=== PATIENT | female | born 1935 | race Caucasian/White ===

== ENCOUNTER 2018-12-31 06:28 | Observation (INO) | payer OTHER ==
[~2018-12-31] VITALS: Ht 154.9 cm; Wt 85.5 kg
[~2018-12-31 06:28] MED LIST: AMLO2.5T4 PO; FAMO20TA8 PO; FLUT1DIS3 IH; GLYB-226 PO; HYDR-2132 PO; LEVO100T12 PO; MONT10TA24 PO; RAMI10CA69 PO; RANI300T4 PO; SIMV40TA5 PO
[2018-12-31 07:00] LABS: BASOPHILS % (AUTO) 1.1 % (0.0-5.0); EOSINOPHILS % (AUTO) 2.4 % (0.0-8.0); HEMATOCRIT 36.2 % (36-48); LYMPHOCYTES % (AUTO) 28.6 % (21.0-51.0); MEAN CORPUSCULAR HEMOGLOBIN 30.5 pg (27.0-33.0); MEAN CORPUSCULAR VOLUME 92.6 fL (79-99); MONOCYTES % (AUTO) 6.7 % (3.0-13.0); NEUTROPHILS % (AUTO) 61.2 % (40.0-77.0); PLATELET COUNT (AUTO) 227 K/uL (130-400); RED BLOOD CELL COUNT(AUTO) 3.91 MIL/uL (4.00-5.50); RED CELL DISTRIBUTION WIDTH 13.8 % (11.0-15.5); WHITE BLOOD COUNT (AUTO) 5.9 K/uL (4.8-10.8)
[2018-12-31 07:09] LABS: CREATININE 0.7 mg/dL (0.5-1.5); POTASSIUM 3.5 mmol/L (3.5-5.1)
[2018-12-31 07:24] LABS: ALBUMIN 3.4 g/dL (3.5-5.0); BILIRUBIN,TOTAL 0.8 mg/dL (0.2-1.0); TOTAL PROTEIN, SERUM 6.9 g/dL (6.0-8.3)
[2018-12-31] MEDS ORDERED: DILTIAZEM HCL 5 MG/ML 10 ML VIAL IV ONE (07:31)
[2018-12-31] MEDS ORDERED: INSULIN HUMULIN R 100 UNIT/ML 3ML ONE (07:58)
[2018-12-31] MEDS ORDERED: DILTIAZEM 125MG+100 ML NS 125 ML IV SCH (08:00)
[2018-12-31] MEDS ORDERED: SODIUM CHLORIDE 0.9% 1000ML 1,000 ML IV ONE (08:49)
[2018-12-31] MEDS ORDERED: METOPROLOL TARTRATE 25 MG TAB ONE (08:49)
[2018-12-31] MEDS ORDERED: GLIP1TAB6 PO (08:57)
[2018-12-31] MEDS ORDERED: TRAM50TA4 PO (08:57)
[2018-12-31] MEDS ORDERED: CALC1TAB2 PO (08:57)
[2018-12-31] MEDS ORDERED: MONT10TA24 PO (08:57)
[2018-12-31] MEDS ORDERED: ALBU18HF7 IH (08:57)
[2018-12-31] MEDS ORDERED: FLUT1DIS3 IH (08:57)
[2018-12-31] MEDS ORDERED: CHOL200016 PO (08:57)
[2018-12-31] MEDS ORDERED: FAMO20TA8 PO (08:58)
[2018-12-31] MEDS ORDERED: LEVO100T12 PO (08:58)
[2018-12-31] MEDS ORDERED: SIMV40TA5 PO (08:58)
[2018-12-31] MEDS ORDERED: RAMI10CA69 PO (08:58)
[2018-12-31] MEDS ORDERED: AMLO2.5T4 PO (08:58)
[2018-12-31] MEDS ORDERED: METOPROLOL TARTRATE 50 MG TAB PO SCH (09:00)
[2018-12-31] MEDS ORDERED: SODIUM CHLORIDE 0.9% 1000ML 1,000 ML IV SCH (09:15)
[2018-12-31] MEDS: FUROSEMIDE 10 MG/ML 4ML VIAL IV SCH ×2 (09:45→21:09)
[2018-12-31] MEDS ORDERED: DiphenhydrAMINE HCL 50 MG/ML VIAL IV PRN (09:45)
[2018-12-31] MEDS ORDERED: LACTULOSE 20 GM/30 ML UDCUP PO PRN (09:45)
[2018-12-31] MEDS ORDERED: ONDANSETRON HCL 4 MG/2 ML VIAL IV PRN (09:45)
[2018-12-31] MEDS ORDERED: DIPHENHYDRAMINE HCL 25 MG CAPSULE PO PRN (09:45)
[2018-12-31] MEDS ORDERED: ALBUTEROL SULFATE 0.083% 2.5 MG/3 ML INH IH PRN ×2 (09:45)
[2018-12-31] MEDS ORDERED: ACETAMINOPHEN 325 MG TAB PO PRN ×2 (09:45)
[2018-12-31] MEDS ORDERED: MAG HYDROX/AL HYDROX/SIMETH ES 30 ML SUSP UDCUP PO PRN (09:45)
[2018-12-31] MEDS: POTASSIUM CHLORIDE 20 MEQ ERTAB PO SCH ×2 (09:45→21:10)
[2018-12-31] MEDS ORDERED: MONTELUKAST SODIUM 10 MG TAB PO PRN (09:45)
[2018-12-31] MEDS: PANTOPRAZOLE SODIUM 40 MG TABLET.DR PO SCH (09:56)
[2018-12-31] MEDS ORDERED: GLUCAGON 1MG KIT 1 MG ML IM PRN ×2 (10:00→20:15)
[2018-12-31] MEDS ORDERED: POTASSIUM CHLORIDE 20 MEQ ERTAB PO PRN (10:00)
[2018-12-31] MEDS ORDERED: DEXTROSE 50%-WATER 50 ML DISP.SYRIN IV PRN ×2 (10:00→20:15)
[2018-12-31] MEDS ORDERED: LIDOCAINE HCL-MPF 1% 2ML VIAL IJ PRN (10:00)
[2018-12-31] MEDS ORDERED: POTASSIUM CHLORIDE 10% ELIXIR 20 MEQ/15 ML UDCUP PO PRN (10:00)
[2018-12-31] MEDS ORDERED: POTASSIUM CHLORIDE 20MEQ/100ML 100 ML IV PRN (10:00)
[2018-12-31] MEDS ORDERED: ENOXAPARIN SODIUM 30 MG/0.3 ML SQ ONE (10:30)
[2018-12-31] MEDS ORDERED: POTASSIUM CHLORIDE 20 MEQ ERTAB PO ONE ×2 (10:30→12:20)
[2018-12-31] MEDS ORDERED: FUROSEMIDE 10 MG/ML 4ML VIAL ONE (10:30)
[2018-12-31] MEDS ORDERED: PANTOPRAZOLE SODIUM 40 MG TABLET.DR PO ONE (10:31)
[2018-12-31] MEDS ORDERED: IPRATROPIUM/ALBUTEROL SULFATE 3 ML SOLUTION IH ONE (10:37)
[2018-12-31] MEDS: IPRATROPIUM/ALBUTEROL SULFATE 3 ML SOLUTION IH SCH ×3 (10:39→23:40)
[2018-12-31] MEDS ORDERED: ONDANSETRON HCL 4 MG/2 ML VIAL ONE (11:13)
--- NOTE | 2018-12-31 11:39 | NUR ---
DCP: HOME Sw met with pt, pt's live in [facility] [phone]. Pt reports she is very active and independent or all ADLS. No DME or in home care services. PCP is Dr Chairez and uses [facility]. Pt denies dc needs, plan is home with . CM to follow and assist as needed Addendum: 12/31/18 at 1142 by SAVANNA BUENO Amended: Links added.
[2018-12-31 13:00] VITALS: BP 105/63
[2018-12-31] MEDS ORDERED: FUROSEMIDE 10 MG/ML 4ML VIAL IV SCH (15:00)
[2018-12-31] MEDS: TRAMADOL HCL 50 MG TABLET PO PRN ×2 (15:26→21:17)
[2018-12-31 16:00] VITALS: BP 102/55
[2018-12-31] MEDS: GLIPIZIDE METFORMIN PO SCH (16:35)
[2018-12-31] MEDS: DILTIAZEM HCL 180 MG CAP.SR.24H PO SCH (16:36)
--- NOTE | 2018-12-31 17:30 | NUR ---
DR. CHAIREZ Received call from Dr. Chairez. Updated her on patient's condition. Verified that lasix dose was given at 1730. Updated her that patient's rhythm is normal sinus rhythm and that patient is in no distress and in good spirits.
[2018-12-31 19:47] VITALS: BP 113/56
[2018-12-31] MEDS ORDERED: SIMVASTATIN 20 MG TABLET PO SCH (21:00)
[2018-12-31] MEDS: INSULIN HUMULIN R 100 UNIT/ML 3ML SQ SCH (21:19)
[2019-01-01 00:22] VITALS: BP 135/75
[2019-01-01 03:37] VITALS: BP 138/75
[2019-01-01 04:48] LABS: HEMATOCRIT 37.7 % (36-48); MEAN CORPUSCULAR HGB CONC 33.3 g/dL (32.0-36.0); MEAN CORPUSCULAR VOLUME 93.3 fL (79-99); PLATELET COUNT (AUTO) 259 K/uL (130-400); RED BLOOD CELL COUNT(AUTO) 4.04 MIL/uL (4.00-5.50); RED CELL DISTRIBUTION WIDTH 13.7 % (11.0-15.5); WHITE BLOOD COUNT (AUTO) 7.7 K/uL (4.8-10.8)
[2019-01-01 04:57] LABS: CREATININE 0.9 mg/dL (0.5-1.5); POTASSIUM 4.8 mmol/L (3.5-5.1)
[2019-01-01] MEDS: IPRATROPIUM/ALBUTEROL SULFATE 3 ML SOLUTION IH SCH ×2 (05:11→11:05)
[2019-01-01] MEDS ORDERED: LEVOTHYROXINE 100 MCG TABLET PO SCH (06:30)
[2019-01-01] MEDS: INSULIN HUMULIN R 100 UNIT/ML 3ML SQ SCH ×2 (06:50→11:30)
[2019-01-01] MEDS: PANTOPRAZOLE SODIUM 40 MG TABLET.DR PO SCH (06:50)
[2019-01-01 07:30] VITALS: BP 114/60
[2019-01-01] MEDS: GLIPIZIDE METFORMIN PO SCH ×2 (08:00→12:00)
[2019-01-01] MEDS ORDERED: LOSARTAN 50 MG TABLET PO SCH (09:00)
[2019-01-01] MEDS ORDERED: ENOXAPARIN SODIUM 30 MG/0.3 ML SQ SCH (09:00)
[2019-01-01] MEDS: FUROSEMIDE 10 MG/ML 4ML VIAL IV SCH (09:06)
[2019-01-01] MEDS: DILTIAZEM HCL 180 MG CAP.SR.24H PO SCH (09:07)
[2019-01-01] MEDS: POTASSIUM CHLORIDE 20 MEQ ERTAB PO SCH (09:09)
[2019-01-01 11:00] VITALS: BP 124/62
[2019-01-01] MEDS ORDERED: LOSA25TA41 PO (13:09)
[2019-01-01] MEDS ORDERED: DILT180C11 PO (13:10)
--- NOTE | 2019-01-01 15:54 | NUR ---
2D ECHO Paged Dr. Chairez to give her preliminary results from [facility] for severe aortic stenosis; moderate to severe mitral regurgitation and a 30% EF. Pending for patient to call back; patient has been updated.
[2019-01-01 16:00] VITALS: BP 100/64
--- NOTE | 2019-01-01 16:06 | NUR ---
DR. CHAIREZ Paged Dr. Chairez again to let her know of 2D ECHO information. Pending for her to call back.
== END 2019-01-01 17:37 | disposition home or self-care (01) ==
LOC: EDH 06:28 → EDHIP 08:35 → 3AH 12:12
PROVIDERS: ADMIT Internal Medicine; ATTEND Internal Medicine
DX: J44.9 Chronic obstructive pulmonary disease, unspecified (principal); I13.10 Hypertensive heart and chronic kidney disease without heart failure, with stage 1 through stage 4 chronic kidney disease, or unspecified chronic kidney disease; E11.22 Type 2 diabetes mellitus with diabetic chronic kidney disease; E11.21 Type 2 diabetes mellitus with diabetic nephropathy; N18.2 Chronic kidney disease, stage 2 (mild); E11.43 Type 2 diabetes mellitus with diabetic autonomic (poly)neuropathy; E11.49 Type 2 diabetes mellitus with other diabetic neurological complication; E11.51 Type 2 diabetes mellitus with diabetic peripheral angiopathy without gangrene; E11.618 Type 2 diabetes mellitus with other diabetic arthropathy; E66.01 Morbid (severe) obesity due to excess calories; E03.9 Hypothyroidism, unspecified; I35.0 Nonrheumatic aortic (valve) stenosis; I48.91 Unspecified atrial fibrillation; J30.9 Allergic rhinitis, unspecified; K21.9 Gastro-esophageal reflux disease without esophagitis; K31.84 Gastroparesis; M19.012 Primary osteoarthritis, left shoulder; E78.1 Pure hyperglyceridemia; M75.91 Shoulder lesion, unspecified, right shoulder; E78.2 Mixed hyperlipidemia; H40.119 Primary open-angle glaucoma, unspecified eye; I49.3 Ventricular premature depolarization; I45.2 Bifascicular block; Z79.51 Long term (current) use of inhaled steroids; Z79.890 Hormone replacement therapy; Z86.69 Personal history of other diseases of the nervous system and sense organs; Z79.84 Long term (current) use of oral hypoglycemic drugs; Z79.899 Other long term (current) drug therapy; Z88.6 Allergy status to analgesic agent; Z68.39 Body mass index [BMI] 39.0-39.9, adult
CPT/HCPCS: 36415 ×2; 71045; 80048; 80053; 82550; 82948 ×5; 83880; 84443; 84484; 85025; 85027; 93005 ×2; 93306; 94640 ×5; 94664; 96372 ×2; 96374; 96376 ×2; 99284; G0378 ×30; J1650 ×2; J1815 ×2; J1940 ×4; J2405; J3490 ×2; J7030

== ENCOUNTER 2019-01-05 00:53 | Inpatient (IN) | payer OTHER ==
[~2019-01-05] VITALS: Ht 154.9 cm; Wt 79.0 kg
[~2019-01-05 00:53] MED LIST changes: +ALBU18HF7 IH; -AMLO2.5T4 PO; +CALC1TAB2 PO; +CHOL200016 PO; +DILT180C11 PO; +GLIP1TAB6 PO; -GLYB-226 PO; -HYDR-2132 PO; +LOSA25TA41 PO; -RAMI10CA69 PO; -RANI300T4 PO; +SIMV-46 PO; -SIMV40TA5 PO; +TRAM50TA4 PO
[2019-01-05] MEDS ORDERED: DILTIAZEM HCL 5 MG/ML 10 ML VIAL IV ONE (01:11)
[2019-01-05 01:21] LABS: EOSINOPHILS % (AUTO) 1.9 % (0.0-8.0); HEMATOCRIT 39.2 % (36-48); LYMPHOCYTES % (AUTO) 29.2 % (21.0-51.0); MEAN CORPUSCULAR HEMOGLOBIN 30.8 pg (27.0-33.0); MEAN CORPUSCULAR HGB CONC 33.1 g/dL (32.0-36.0); MEAN CORPUSCULAR VOLUME 93.1 fL (79-99); MONOCYTES % (AUTO) 6.9 % (3.0-13.0); PLATELET COUNT (AUTO) 259 K/uL (130-400); RED BLOOD CELL COUNT(AUTO) 4.21 MIL/uL (4.00-5.50); RED CELL DISTRIBUTION WIDTH 13.7 % (11.0-15.5); WHITE BLOOD COUNT (AUTO) 9.6 K/uL (4.8-10.8)
[2019-01-05] MEDS ORDERED: DILTIAZEM HCL 125 MG/25 ML VIAL IV ONE ×3 (01:24→15:00)
[2019-01-05] MEDS ORDERED: SODIUM CHLORIDE 0.9% 100 ML IV ONE ×2 (01:25→15:01)
[2019-01-05] MEDS ORDERED: IPRATROPIUM/ALBUTEROL SULFATE 3 ML SOLUTION IH ONE ×3 (01:26→12:47)
[2019-01-05 01:33] LABS: INR 0.97 (0.85-1.15); PARTIAL THROMBOPLASTIN TIME 25.5 SEC (26.3-35.5); PROTHROMBIN TIME 10.2 SEC (9.6-11.6)
[2019-01-05 01:36] LABS: B-TYPE NATRIURETIC PEPTIDE 1000 pg/mL (0-100)
[2019-01-05 02:59] LABS: POTASSIUM 4.2 mmol/L (3.5-5.1)
[2019-01-05 03:04] LABS: ALBUMIN 3.7 g/dL (3.5-5.0); BILIRUBIN,TOTAL 0.5 mg/dL (0.2-1.0); TOTAL PROTEIN, SERUM 7.4 g/dL (6.0-8.3)
[2019-01-05] MEDS ORDERED: FUROSEMIDE 10 MG/ML 4ML VIAL ONE (04:17)
[2019-01-05 04:35] LABS: APPEARANCE,URINE Clear (CLEAR); BILIRUBIN,URINE Negative (NEGATIVE); COLOR,URINE Yellow (YELLOW); GLUCOSE, URINE (UA) 250 mg/dL (NEGATIVE); KETONES,URINE Trace mg/dL (NEGATIVE); LEUKOCYTE ESTERASE ,URINE Trace (NEGATIVE); NITRATE,URINE Negative (NEGATIVE); OCCULT BLOOD,URINE Negative (NEGATIVE); PROTEIN,URINE Negative (NEGATIVE)
[2019-01-05 04:40] LABS: BACTERIA,URINE None Seen /HPF (None Seen)
[2019-01-05] MEDS ORDERED: FUROSEMIDE 10 MG/ML 4ML VIAL IVP SCH (06:00)
[2019-01-05] MEDS ORDERED: DEXTROSE 50%-WATER 50 ML DISP.SYRIN IV PRN ×2 (06:00→07:30)
[2019-01-05] MEDS ORDERED: GLUCAGON 1MG KIT 1 MG ML IM PRN ×2 (06:00→07:30)
[2019-01-05] MEDS ORDERED: ACETAMINOPHEN 325 MG TAB PO PRN ×3 (06:00→07:00)
[2019-01-05] MEDS ORDERED: INSULIN R NPO SSI SQ SCH (06:00)
[2019-01-05] MEDS ORDERED: ALBUTEROL SULFATE 0.083% 2.5 MG/3 ML INH IH PRN (06:00)
[2019-01-05] MEDS ORDERED: NITROGLYCERIN 1GM/1 INCH PACKET TD SCH (06:00)
[2019-01-05] MEDS ORDERED: ALBUTEROL SULFATE 0.083% 2.5 MG/3 ML INH IH ONE (06:26)
[2019-01-05] MEDS ORDERED: SUB TO ALBUTEROL 2.5MG/3ML NEBULES PER P&T IH PRN (07:00)
[2019-01-05] MEDS ORDERED: GUAIFENESIN-DM 200/20 MG 10 ML PO PRN (07:00)
[2019-01-05] MEDS ORDERED: DiphenhydrAMINE HCL 50 MG/ML VIAL IV PRN (07:00)
[2019-01-05] MEDS ORDERED: ONDANSETRON HCL 4 MG/2 ML VIAL IV PRN (07:00)
[2019-01-05] MEDS ORDERED: LACTULOSE 20 GM/30 ML UDCUP PO PRN (07:00)
[2019-01-05] MEDS ORDERED: TRAMADOL HCL 50 MG TABLET PO PRN (07:00)
[2019-01-05] MEDS ORDERED: MONTELUKAST SODIUM 10 MG TAB PO PRN (07:00)
[2019-01-05] MEDS ORDERED: DIPHENHYDRAMINE HCL 25 MG CAPSULE PO PRN (07:00)
[2019-01-05] MEDS ORDERED: MAG HYDROX/AL HYDROX/SIMETH ES 30 ML SUSP UDCUP PO PRN (07:00)
[2019-01-05] MEDS: INSULIN HUMULIN R 100 UNIT/ML 3ML SQ SCH ×4 (07:30→21:00)
[2019-01-05] MEDS ORDERED: POTASSIUM CHLORIDE 20MEQ/100ML 100 ML IV PRN (07:30)
[2019-01-05] MEDS ORDERED: LIDOCAINE HCL-MPF 1% 2ML VIAL IV PRN (07:30)
[2019-01-05] MEDS ORDERED: LIDOCAINE HCL-MPF 1% 2ML VIAL IJ PRN (07:30)
[2019-01-05] MEDS ORDERED: POTASSIUM CHLORIDE 10% ELIXIR 20 MEQ/15 ML UDCUP PO PRN (07:30)
[2019-01-05] MEDS: DILTIAZEM HCL 180 MG CAP.SR.24H PO SCH ×2 (07:52→09:00)
[2019-01-05] MEDS: LEVOTHYROXINE 100 MCG TABLET PO SCH (07:54)
[2019-01-05] MEDS ORDERED: GLIPIZIDE 5 MG TABLET PO SCH (08:00)
[2019-01-05] MEDS ORDERED: METFORMIN HCL 500 MG TABLET PO SCH (08:00)
[2019-01-05] MEDS ORDERED: DILTIAZEM HCL 60 MG TABLET ONE (08:33)
[2019-01-05] MEDS ORDERED: LEVOTHYROXINE 100 MCG TABLET ONE (08:35)
[2019-01-05] MEDS: ENOXAPARIN SODIUM 40 MG/0.4 ML SYRINGE SQ SCH (09:00)
[2019-01-05] MEDS: LOSARTAN 50 MG TABLET PO SCH (09:00)
[2019-01-05] MEDS ORDERED: SUB TO BREO ELLIPTA 100MCG/25MCG PER P&T IH SCH (09:00)
[2019-01-05] MEDS ORDERED: ENOXAPARIN SODIUM 40 MG/0.4 ML SYRINGE SQ ONE (09:56)
--- NOTE | 2019-01-05 10:02 | NUR ---
VENESSA Rausch met with pt, pt's live in [facility] [phone]. Pt reports she is very active and independent or all ADLS. No DME or in home care services. PCP is Dr Chairez and uses [facility] pharmacy. Pt states she was just here " they didn't fix me". "they just got me to feel better and sent me home", "I want them to fix it". plan is home with . CM to follow and assist as needed
[2019-01-05 11:43] LABS: BASOPHILS % (AUTO) 1.3 % (0.0-5.0); EOSINOPHILS % (AUTO) 1.2 % (0.0-8.0); HEMATOCRIT 37.1 % (36-48); LYMPHOCYTES % (AUTO) 23.1 % (21.0-51.0); MEAN CORPUSCULAR HEMOGLOBIN 30.7 pg (27.0-33.0); MEAN CORPUSCULAR HGB CONC 32.9 g/dL (32.0-36.0); MEAN CORPUSCULAR VOLUME 93.5 fL (79-99); MONOCYTES % (AUTO) 7.7 % (3.0-13.0); NEUTROPHILS % (AUTO) 66.7 % (40.0-77.0); PLATELET COUNT (AUTO) 239 K/uL (130-400); RED BLOOD CELL COUNT(AUTO) 3.97 MIL/uL (4.00-5.50); RED CELL DISTRIBUTION WIDTH 14.1 % (11.0-15.5); WHITE BLOOD COUNT (AUTO) 6.7 K/uL (4.8-10.8)
[2019-01-05] MEDS ORDERED: INSULIN HUMULIN R 100 UNIT/ML 3ML ONE (11:47)
[2019-01-05 11:49] LABS: CREATININE 0.8 mg/dL (0.5-1.5); POTASSIUM 3.5 mmol/L (3.5-5.1)
[2019-01-05] MEDS: GLIPIZIDE 5 MG TABLET PO SCH ×2 (12:00→17:00)
[2019-01-05] MEDS: IPRATROPIUM/ALBUTEROL SULFATE 3 ML SOLUTION IH SCH ×3 (12:47→23:53)
[2019-01-05] MEDS ORDERED: MAGNESIUM SULFATE 1 GM/2 ML VIAL IM ONE (14:13)
[2019-01-05] MEDS ORDERED: CALCIUM CHLORIDE 100 MG/ML 10 ML SYG IVP ONE (14:13)
[2019-01-05] MEDS ORDERED: SODIUM BICARB 8.4% 50ML SYRINGE IVP ONE (14:13)
[2019-01-05] MEDS ORDERED: ALBUMIN (HUMAN) 25% 50 ML IV ONE (14:13)
[2019-01-05] MEDS ORDERED: MANNITOL 25% 50ML VIAL IV ONE (14:13)
[2019-01-05] MEDS ORDERED: HEPARIN SODIUM 1000UNIT/ML 10ML VIAL IV ONE (14:13)
[2019-01-05] MEDS ORDERED: AMINOCAPROIC ACID 250 MG/ML 20 ML VIAL IV ONE (14:13)
[2019-01-05] MEDS: POTASSIUM CHLORIDE 20 MEQ ERTAB PO SCH ×2 (14:15→21:00)
[2019-01-05] MEDS ORDERED: DIGOXIN 250 MCG/ML 2ML AMP ONE ×2 (16:20→23:14)
[2019-01-05] MEDS ORDERED: AMIODARONE HCL 150 MG in DEXTROSE 5%-WATER 100 ML IV PRN (17:00)
[2019-01-05] MEDS ORDERED: AMIODARONE HCL 900 MG in DEXTROSE 5%-WATER 500 ML IV PRN (17:00)
[2019-01-05] MEDS: FAMOTIDINE 20MG TAB 20 MG TAB PO SCH (17:00)
[2019-01-05] MEDS: FUROSEMIDE 40 MG TABLET PO SCH (17:00)
[2019-01-05] MEDS ORDERED: DIGOXIN 250 MCG/ML 2ML AMP IV SCH (17:25)
[2019-01-05] MEDS: BUDESONIDE 0.5 MG/2 ML INH IH SCH (18:38)
[2019-01-05] MEDS ORDERED: SIMVASTATIN 10 MG TABLET ONE (20:38)
[2019-01-05] MEDS ORDERED: POTASSIUM CHLORIDE 20 MEQ ERTAB PO ONE (20:39)
[2019-01-05] MEDS ORDERED: FUROSEMIDE 40 MG TABLET ONE (20:39)
[2019-01-05] MEDS ORDERED: INSULIN GLARGINE 100 UNITS/ML 10 ML VIAL SQ SCH (21:00)
[2019-01-05] MEDS: SIMVASTATIN 20 MG TABLET PO SCH (21:00)
[2019-01-05] MEDS ORDERED: MONTELUKAST SODIUM 10 MG TAB ONE (22:50)
[2019-01-06] MEDS ORDERED: DIGOXIN 250 MCG/ML 2ML AMP ONE ×2 (05:00→18:46)
[2019-01-06 05:21] LABS: BASOPHILS % (AUTO) 0.9 % (0.0-5.0); EOSINOPHILS % (AUTO) 1.5 % (0.0-8.0); HEMATOCRIT 37.4 % (36-48); LYMPHOCYTES % (AUTO) 19.8 % (21.0-51.0); MEAN CORPUSCULAR HEMOGLOBIN 30.7 pg (27.0-33.0); MEAN CORPUSCULAR HGB CONC 33.6 g/dL (32.0-36.0); MEAN CORPUSCULAR VOLUME 91.5 fL (79-99); MONOCYTES % (AUTO) 7.9 % (3.0-13.0); NEUTROPHILS % (AUTO) 69.9 % (40.0-77.0); NUCLEATED RED BLOOD CELLS 0.1 % (0.0-0.19); PLATELET COUNT (AUTO) 243 K/uL (130-400); RED BLOOD CELL COUNT(AUTO) 4.09 MIL/uL (4.00-5.50); RED CELL DISTRIBUTION WIDTH 13.7 % (11.0-15.5); WHITE BLOOD COUNT (AUTO) 8.6 K/uL (4.8-10.8)
[2019-01-06 05:29] LABS: CREATININE 0.9 mg/dL (0.5-1.5); POTASSIUM 3.9 mmol/L (3.5-5.1)
[2019-01-06] MEDS ORDERED: IPRATROPIUM/ALBUTEROL SULFATE 3 ML SOLUTION IH ONE ×3 (05:36→23:14)
[2019-01-06] MEDS: IPRATROPIUM/ALBUTEROL SULFATE 3 ML SOLUTION IH SCH ×4 (05:41→23:22)
[2019-01-06] MEDS: LEVOTHYROXINE 100 MCG TABLET PO SCH (06:30)
[2019-01-06] MEDS: INSULIN HUMULIN R 100 UNIT/ML 3ML SQ SCH ×4 (07:30→21:00)
[2019-01-06] MEDS: GLIPIZIDE 5 MG TABLET PO SCH ×3 (08:00→17:00)
[2019-01-06] MEDS: DILTIAZEM HCL 180 MG CAP.SR.24H PO SCH (09:00)
[2019-01-06] MEDS: ENOXAPARIN SODIUM 40 MG/0.4 ML SYRINGE SQ SCH (09:00)
[2019-01-06] MEDS: FUROSEMIDE 40 MG TABLET PO SCH ×2 (09:00→17:00)
[2019-01-06] MEDS: LOSARTAN 50 MG TABLET PO SCH (09:00)
[2019-01-06] MEDS: POTASSIUM CHLORIDE 20 MEQ ERTAB PO SCH ×2 (09:00→21:00)
[2019-01-06] MEDS ORDERED: ENOXAPARIN SODIUM 40 MG/0.4 ML SYRINGE SQ ONE (09:01)
[2019-01-06] MEDS ORDERED: LEVOTHYROXINE 100 MCG TABLET ONE (09:01)
[2019-01-06] MEDS ORDERED: TRAMADOL HCL 50 MG TABLET ONE ×2 (09:02→21:30)
[2019-01-06] MEDS ORDERED: INSULIN HUMULIN R 100 UNIT/ML 3ML ONE ×2 (09:03→13:54)
[2019-01-06] MEDS ORDERED: INSULIN GLARGINE 100 UNITS/ML 10 ML VIAL SQ SCH ×2 (09:30→21:00)
[2019-01-06] MEDS ORDERED: BUDESONIDE 0.5 MG/2 ML INH IH ONE (11:02)
[2019-01-06] MEDS ORDERED: ACETAMINOPHEN 325 MG TAB ONE (11:20)
[2019-01-06] MEDS ORDERED: DIGOXIN 250 MCG/ML 2ML AMP IV SCH ×2 (11:58)
[2019-01-06] MEDS: FAMOTIDINE 20MG TAB 20 MG TAB PO SCH (17:00)
[2019-01-06] MEDS: BUDESONIDE 0.5 MG/2 ML INH IH SCH (18:20)
[2019-01-06] MEDS ORDERED: FAMOTIDINE 20MG TAB 20 MG TAB ONE (18:47)
[2019-01-06] MEDS: SIMVASTATIN 20 MG TABLET PO SCH (21:00)
[2019-01-06] MEDS ORDERED: FUROSEMIDE 40 MG TABLET ONE (21:28)
[2019-01-06] MEDS ORDERED: POTASSIUM CHLORIDE 20 MEQ ERTAB PO ONE (21:28)
[2019-01-06] MEDS ORDERED: MAG HYDROX/AL HYDROX/SIMETH ES 30 ML SUSP UDCUP ONE (23:19)
[2019-01-07] MEDS ORDERED: DILTIAZEM HCL 5 MG/ML 5 ML VIAL IVP ONE (00:48)
[2019-01-07 04:52] LABS: BASOPHILS % (AUTO) 0.8 % (0.0-5.0); EOSINOPHILS % (AUTO) 1.2 % (0.0-8.0); HEMATOCRIT 35.6 % (36-48); LYMPHOCYTES % (AUTO) 22.7 % (21.0-51.0); MEAN CORPUSCULAR HEMOGLOBIN 30.7 pg (27.0-33.0); MEAN CORPUSCULAR VOLUME 92.9 fL (79-99); MONOCYTES % (AUTO) 10.9 % (3.0-13.0); NEUTROPHILS % (AUTO) 64.4 % (40.0-77.0); PLATELET COUNT (AUTO) 219 K/uL (130-400); RED BLOOD CELL COUNT(AUTO) 3.83 MIL/uL (4.00-5.50); RED CELL DISTRIBUTION WIDTH 13.8 % (11.0-15.5); WHITE BLOOD COUNT (AUTO) 7.1 K/uL (4.8-10.8)
[2019-01-07 05:11] LABS: CREATININE 0.7 mg/dL (0.5-1.5); POTASSIUM 3.9 mmol/L (3.5-5.1)
[2019-01-07] MEDS ORDERED: IPRATROPIUM/ALBUTEROL SULFATE 3 ML SOLUTION IH ONE (06:13)
[2019-01-07] MEDS: IPRATROPIUM/ALBUTEROL SULFATE 3 ML SOLUTION IH SCH (06:17)
[2019-01-07] MEDS: LEVOTHYROXINE 100 MCG TABLET PO SCH (06:30)
[2019-01-07] MEDS ORDERED: BUDESONIDE 0.5 MG/2 ML INH IH ONE (06:34)
[2019-01-07] MEDS: BUDESONIDE 0.5 MG/2 ML INH IH SCH (06:35)
[2019-01-07] MEDS ORDERED: IOHEXOL-350 50ML VIAL IV ONE ×2 (07:10→08:22)
[2019-01-07] MEDS ORDERED: LIDOCAINE HCL 2% 20ML ONE (07:10)
[2019-01-07] MEDS ORDERED: NITROGLYCERIN 5 MG/ML 10 ML VIAL IV ONE (07:10)
[2019-01-07] MEDS ORDERED: IOHEXOL 350 MG/ML 100ML INFUS..BTL IV ONE (07:10)
[2019-01-07] MEDS ORDERED: IPRATROPIUM/ALBUTEROL SULFATE 3 ML SOLUTION IH PRN (07:30)
[2019-01-07] MEDS: INSULIN HUMULIN R 100 UNIT/ML 3ML SQ SCH ×4 (07:30→21:00)
[2019-01-07] MEDS: INSULIN GLARGINE 100 UNITS/ML 10 ML VIAL SQ SCH (07:30)
[2019-01-07] MEDS: GLIPIZIDE 5 MG TABLET PO SCH ×3 (08:00→16:18)
[2019-01-07] MEDS ORDERED: MIDAZOLAM HCL 1 MG/ML 2ML VIAL ONE (08:06)
[2019-01-07] MEDS ORDERED: FENTANYL CITRATE PF 50 MCG/1 ML 2ML VIAL ONE (08:06)
[2019-01-07] MEDS ORDERED: IOHEXOL-350 75 ML VIAL IV ONE (08:32)
[2019-01-07] MEDS ORDERED: FUROSEMIDE 10 MG/ML 2ML VIAL ONE (08:44)
[2019-01-07] MEDS ORDERED: MORPHINE SULFATE 4 MG/1ML SYG ONE (08:51)
[2019-01-07] MEDS: DILTIAZEM HCL 180 MG CAP.SR.24H PO SCH (09:00)
[2019-01-07] MEDS: POTASSIUM CHLORIDE 20 MEQ ERTAB PO SCH ×2 (09:00→20:09)
[2019-01-07] MEDS: ENOXAPARIN SODIUM 40 MG/0.4 ML SYRINGE SQ SCH (09:00)
[2019-01-07] MEDS: FUROSEMIDE 40 MG TABLET PO SCH ×2 (09:00→16:18)
[2019-01-07] MEDS: LOSARTAN 50 MG TABLET PO SCH (09:00)
[2019-01-07] MEDS ORDERED: INSULIN HUMULIN R 100 UNIT/ML 3ML ONE (11:56)
--- NOTE | 2019-01-07 13:58 | NUR ---
ARRIVAL TO FLOOR ROOM 225. PT IS AAOX4 DENIES CP DENIES SOB DENIES NV NO COMPLAINTS, RIGHT GROIN DRESSING IN PLACE, CLEAN DRY AND INTACT. AMIODARONE GTT IN PROGRESS AT THIS TIME FROM ER. DUE TO BE COMPLETED 2:30PM. HR VIA TELE SR 73.
[2019-01-07 14:04] VITALS: BP 104/62
--- NOTE | 2019-01-07 14:30 | NUR ---
AMIODARONE GTT COMPLETED HR VIA TELE REMAINS SR 70S
--- NOTE | 2019-01-07 15:30 | NUR ---
DR MARCUS CONSULT VERIFIED WITH ISH WYMAN RN. DR MARCUS PENDING TO COME SEE.
[2019-01-07 15:58] VITALS: BP 122/51
[2019-01-07] MEDS: FAMOTIDINE 20MG TAB 20 MG TAB PO SCH (16:18)
[2019-01-07 19:08] VITALS: BP 108/68
[2019-01-07] MEDS: SIMVASTATIN 20 MG TABLET PO SCH (20:09)
--- NOTE | 2019-01-07 21:30 | NUR ---
DR MARCUS ROUNDED ON PATIENT. SPOKE TO PATIENT ABOUT VALVE REPLACEMENT. NO NEW ORDERS
[2019-01-08] VITALS (7 sets, daily range): BP systolic 106–126; BP diastolic 48–81
[2019-01-08 03:53] LABS: MEAN CORPUSCULAR HEMOGLOBIN 30.9 pg (27.0-33.0); MEAN CORPUSCULAR HGB CONC 33.8 g/dL (32.0-36.0); MEAN CORPUSCULAR VOLUME 91.4 fL (79-99); PLATELET COUNT (AUTO) 213 K/uL (130-400); RED BLOOD CELL COUNT(AUTO) 3.94 MIL/uL (4.00-5.50); RED CELL DISTRIBUTION WIDTH 13.7 % (11.0-15.5); WHITE BLOOD COUNT (AUTO) 7.1 K/uL (4.8-10.8)
[2019-01-08 03:56] LABS: CREATININE 0.7 mg/dL (0.5-1.5); POTASSIUM 3.7 mmol/L (3.5-5.1)
--- NOTE | 2019-01-08 05:03 | NUR ---
PATIENT RESTING IN BED. SOFT GROIN, NO HEMATOMA. PEDAL PULSES ASSESSED WITH DOPPLER. NO C/O CHEST PAIN OR SOB. PATIENT REFUSED NEB TREATMENT. MAKES HER SHAKY. WILL REQUEST TO CHANGE NEBS.
[2019-01-08] MEDS: LEVOTHYROXINE 100 MCG TABLET PO SCH (05:59)
[2019-01-08] MEDS: INSULIN HUMULIN R 100 UNIT/ML 3ML SQ SCH ×4 (06:00→21:33)
[2019-01-08] MEDS: INSULIN GLARGINE 100 UNITS/ML 10 ML VIAL SQ SCH (06:04)
--- NOTE | 2019-01-08 07:30 | NUR ---
ASSESSMENT PT IS AAOX4 DENIES CP DENIES SOB DENIES NV NO COMPLAINTS, SITTING UPRIGHT IN BED. HR VIA TELE SR 80S. RIGHT GROIN WNL. FAMILY IS AT BEDSIDE.
[2019-01-08] MEDS: FUROSEMIDE 40 MG TABLET PO SCH ×2 (07:47→16:36)
[2019-01-08] MEDS: DILTIAZEM HCL 180 MG CAP.SR.24H PO SCH (07:47)
[2019-01-08] MEDS: LOSARTAN 50 MG TABLET PO SCH (07:47)
[2019-01-08] MEDS: POTASSIUM CHLORIDE 20 MEQ ERTAB PO SCH ×2 (07:48→19:45)
[2019-01-08] MEDS: GLIPIZIDE 5 MG TABLET PO SCH ×3 (07:48→16:36)
[2019-01-08] MEDS: ENOXAPARIN SODIUM 40 MG/0.4 ML SYRINGE SQ SCH (07:49)
[2019-01-08] MEDS ORDERED: ACETAMINOPHEN-CODEINE 300/30MG TAB PO PRN ×2 (09:45)
--- NOTE | 2019-01-08 12:15 | NUR ---
STATUS SITTING UP AT BEDSIDE, EATING LUNCH. FAMILY IS AT BEDSIDE.
[2019-01-08] MEDS: FAMOTIDINE 20MG TAB 20 MG TAB PO SCH (16:36)
--- NOTE | 2019-01-08 17:00 | NUR ---
CONSENT OBTAINED FOR SURGERY
[2019-01-08] MEDS ORDERED: ALBUMIN (HUMAN) 25% 50 ML IV ONE (19:29)
[2019-01-08] MEDS: SIMVASTATIN 20 MG TABLET PO SCH (19:45)
[2019-01-09] VITALS (43 sets, daily range): BP systolic 96–165; BP diastolic 45–99
[2019-01-09 04:23] LABS: HEMATOCRIT 35.1 % (36-48); MEAN CORPUSCULAR HGB CONC 33.5 g/dL (32.0-36.0); MEAN CORPUSCULAR VOLUME 92.4 fL (79-99); NUCLEATED RED BLOOD CELLS 0.1 % (0.0-0.19); PLATELET COUNT (AUTO) 196 K/uL (130-400); RED CELL DISTRIBUTION WIDTH 13.5 % (11.0-15.5); WHITE BLOOD COUNT (AUTO) 5.2 K/uL (4.8-10.8)
[2019-01-09 04:29] LABS: CREATININE 0.7 mg/dL (0.5-1.5); POTASSIUM 3.7 mmol/L (3.5-5.1)
[2019-01-09 04:32] LABS: INR 0.96 (0.85-1.15); PARTIAL THROMBOPLASTIN TIME 27.3 SEC (26.3-35.5); PROTHROMBIN TIME 10.1 SEC (9.6-11.6)
[2019-01-09] MEDS: INSULIN GLARGINE 100 UNITS/ML 10 ML VIAL SQ SCH (05:46)
[2019-01-09] MEDS: INSULIN HUMULIN R 100 UNIT/ML 3ML SQ SCH (05:46)
[2019-01-09] MEDS: LEVOTHYROXINE 100 MCG TABLET PO SCH (05:46)
[2019-01-09] MEDS ORDERED: CEFAZOLIN SODIUM 1 GM VIAL IVP PRN (07:00)
[2019-01-09] MEDS ORDERED: NITROGLYCERIN 50 MG/D5% WATER 1 BOT ONE (07:16)
[2019-01-09] MEDS ORDERED: SODIUM CHLORIDE 0.9% 1000ML 1,000 ML IV ONE (07:20)
[2019-01-09] MEDS ORDERED: BACITRACIN 50,000 UNIT VIAL ONE (07:20)
[2019-01-09] MEDS ORDERED: ROPIVACAINE 0.5% 5MG/ML 30ML IJ ONE (07:21)
[2019-01-09] MEDS ORDERED: NOREPINEPHRINE BITARTRATE 1 MG/1 ML ML IV ONE ×2 (07:37→08:07)
[2019-01-09] MEDS ORDERED: AMIODARONE HCL 50 MG/ML 3 ML VIAL ONE (07:37)
[2019-01-09] MEDS: CEFAZOLIN SODIUM 1 GM VIAL IVP PRN ×2 (07:50→09:00)
[2019-01-09] MEDS ORDERED: ESMOLOL HCL 10 MG/ML 10 ML VIAL ONE ×2 (08:07→09:59)
[2019-01-09] MEDS ORDERED: AMINOCAPROIC ACID 250 MG/ML 20 ML VIAL IV ONE (08:07)
[2019-01-09] MEDS ORDERED: PROTAMINE SULFATE 10 MG/ML 25ML VIAL IV ONE (08:07)
[2019-01-09] MEDS ORDERED: HEPARIN SODIUM 1000UNIT/ML 10ML VIAL ONE (08:07)
[2019-01-09] MEDS ORDERED: EPINEPHRINE 1 MG/ML AMPULE ONE (08:07)
[2019-01-09] MEDS ORDERED: LIDOCAINE PF 2% 5ML ABBOJECT ONE (08:07)
[2019-01-09] MEDS ORDERED: DELNIDO FORMULA 1 BAG IV ONE (08:07)
[2019-01-09] MEDS ORDERED: SODIUM BICARB 50MEQ 50ML VIAL ONE (08:07)
[2019-01-09] MEDS ORDERED: ROCURONIUM 10MG/1ML SYR 10 MG/ML ML ONE (08:08)
[2019-01-09] MEDS ORDERED: FENTANYL CITRATE PF 50 MCG/1 ML 20ML VIAL IJ ONE (08:08)
[2019-01-09] MEDS ORDERED: PROPOFOL 10 MG/ML 20ML VIAL IV ONE (08:08)
[2019-01-09] MEDS ORDERED: MIDAZOLAM HCL 1 MG/ML 2ML VIAL ONE (08:08)
[2019-01-09] MEDS ORDERED: KETAMINE 50MG/ML SYRINGE 50 MG/ML DISP.SYRIN IV ONE (08:21)
[2019-01-09 09:13] LABS: ABG HCO3 22.5 mmol/L (21.0-28.0); ABG PCO2 30 mmHg (32-45)
[2019-01-09] MEDS ORDERED: MILRINONE-D5W 20 MG/100 ML 100 ML IV ONE (10:13)
[2019-01-09 10:29] LABS: ABG BASE EXCESS 0.5 mmol/L (-2.0-3.0); ABG HCO3 24.4 mmol/L (21.0-28.0); ABG OXYGEN SATURATION 98.6 % (95.0-99.0); ABG PCO2 36 mmHg (32-45)
[2019-01-09 10:59] LABS: ABG BASE EXCESS 1.4 mmol/L (-2.0-3.0); ABG HCO3 25.9 mmol/L (21.0-28.0); ABG OXYGEN SATURATION 98.4 % (95.0-99.0); ABG PCO2 41 mmHg (32-45)
[2019-01-09] MEDS ORDERED: SODIUM CHLORIDE 0.9% 500ML 500 ML IV SCH (11:38)
[2019-01-09] MEDS ORDERED: POTASSIUM PHOS 15 mMOL+NS250ML 250 ML IV PRN (11:45)
[2019-01-09] MEDS ORDERED: NOREPINEPHRINE 4MG/NS 250ML 250 ML IV PRN (11:45)
[2019-01-09] MEDS ORDERED: SODIUM BICARB 50MEQ 50ML VIAL IV PRN (11:45)
[2019-01-09] MEDS ORDERED: AMINOCAPROIC ACID 15,000 MG in SODIUM CHLORIDE 0.9% 250 ML IV SCH (11:45)
[2019-01-09] MEDS ORDERED: ACETAMINOPHEN 650 MG SUPPOSITORY RC PRN (11:45)
[2019-01-09] MEDS ORDERED: SODIUM CHLORIDE 0.9% 250 ML IV PRN (11:45)
[2019-01-09] MEDS ORDERED: INSULIN REGULAR, HUMAN 3ML 100 UNIT in SODIUM CHLORIDE 0.9% 99 ML IV SCH ×2 (11:45)
[2019-01-09] MEDS ORDERED: DEXTROSE 50%-WATER 50 ML DISP.SYRIN IV PRN (11:45)
[2019-01-09] MEDS ORDERED: GLUCAGON 1MG KIT 1 MG ML IM PRN (11:45)
[2019-01-09] MEDS ORDERED: MORPHINE SULFATE 2 MG/ML 1ML SYG IV PRN (11:45)
[2019-01-09] MEDS ORDERED: PROPOFOL 1000 MG/100 ML 100 ML IV PRN (11:45)
[2019-01-09] MEDS ORDERED: MORPHINE SULFATE 4 MG/1ML SYG IV PRN (11:45)
[2019-01-09] MEDS ORDERED: ONDANSETRON HCL 4 MG/2 ML VIAL IV PRN (11:45)
[2019-01-09] MEDS ORDERED: ALBUMIN (HUMAN) 5% 250 ML IV PRN (11:45)
[2019-01-09] MEDS ORDERED: SODIUM CHLORIDE 0.9% 1000ML 1,000 ML IV SCH (11:45)
[2019-01-09] MEDS ORDERED: SODIUM CHLORIDE 0.9% 10 ML VIAL IVP PRN (11:45)
[2019-01-09] MEDS ORDERED: NITROGLYCERIN 50 MG/D5% WATER 250 BOT IV SCH (11:45)
[2019-01-09] MEDS ORDERED: CALCIUM GLUCONATE 1 GM in SODIUM CHLORIDE 0.9% 50 ML IV PRN (11:45)
[2019-01-09] MEDS ORDERED: EPINEPHRINE 8 MG in DEXTROSE 5%-WATER 250 ML IV PRN (11:45)
[2019-01-09] MEDS ORDERED: ACETAMINOPHEN 325 MG TAB PO PRN ×2 (11:45)
[2019-01-09 11:54] LABS: ABG BASE EXCESS -2.1 mmol/L (-2.0-3.0); ABG HCO3 22.3 mmol/L (21.0-28.0); ABG OXYGEN SATURATION 98.5 % (95.0-99.0); ABG PCO2 37 mmHg (32-45)
--- NOTE | 2019-01-09 12:20 | NUR ---
RECEIVED PT FROM OR, POST AVR. ASSESSMENT COMPLETED NOTED.PT ON AMICAR AT 50 ML/HR. EPI DRIP AT 0.1 MCGS/KG/MIN, LEVOPHED AT 6 MCGS/MIN, AND MILRINONE AT 0.2 MCGS/KG/MIN. HEMODYNAMICS NOTED IN EMR. LABS/CXR COMPLETED ORDERED.
[2019-01-09 12:41] LABS: ABG HCO3 20.3 mmol/L (21.0-28.0); ABG OXYGEN SATURATION 91.4 % (95.0-99.0); ABG PCO2 39 mmHg (32-45)
[2019-01-09 12:54] LABS: HEMATOCRIT 34.1 % (36-48); MEAN CORPUSCULAR HEMOGLOBIN 30.8 pg (27.0-33.0); MEAN CORPUSCULAR HGB CONC 32.8 g/dL (32.0-36.0); MEAN CORPUSCULAR VOLUME 93.9 fL (79-99); NUCLEATED RED BLOOD CELLS 0.1 % (0.0-0.19); PLATELET COUNT (AUTO) 197 K/uL (130-400); RED BLOOD CELL COUNT(AUTO) 3.63 MIL/uL (4.00-5.50); RED CELL DISTRIBUTION WIDTH 13.4 % (11.0-15.5); WHITE BLOOD COUNT (AUTO) 17.6 K/uL (4.8-10.8)
--- NOTE | 2019-01-09 13:00 | NUR ---
FAMILY AT BEDSIDE. UPDATED IN PLAN OF CARE. ALL QUESTIONS ANSWERED.
[2019-01-09 13:12] LABS: INR 1.15 (0.85-1.15); PARTIAL THROMBOPLASTIN TIME 22.6 SEC (26.3-35.5)
[2019-01-09 13:16] LABS: CREATININE 0.8 mg/dL (0.5-1.5); MAGNESIUM 2.8 mg/dL (1.80-2.40); PHOSPHORUS 4.9 mg/dL (2.5-4.9); POTASSIUM 3.7 mmol/L (3.5-5.1)
[2019-01-09] MEDS: POTASSIUM CHLORIDE 10MEQ/100ML 100 ML IV PRN ×2 (13:25→18:54)
[2019-01-09] MEDS: Q-PUMP 1 EACH IRRIG SCH (13:40)
[2019-01-09 13:58] LABS: ABG BASE EXCESS 0.7 mmol/L (-2.0-3.0); ABG HCO3 24.6 mmol/L (21.0-28.0); ABG OXYGEN SATURATION 92.3 % (95.0-99.0); ABG PCO2 37 mmHg (32-45)
[2019-01-09] MEDS ORDERED: ROPIVACAINE 0.2% 2MG/ML 100ML VIAL IJ ONE (13:59)
--- NOTE | 2019-01-09 14:00 | NUR ---
[facility] CALLED AND NOTIFIED OF PT ARRIVAL TO UNIT.
--- NOTE | 2019-01-09 14:30 | NUR ---
DR. HAMMOND NOTIFIED OF LAST ABG RESULTS. NEW ORDERS RECEIVED AND NOTED.
--- NOTE | 2019-01-09 14:45 | NUR ---
DR. MARCUS AT BEDSIDE. PLAN OF CARE DISCUSSED. NOTIFIED OF LAST ABG RESULTS.
[2019-01-09] MEDS: IPRATROPIUM/ALBUTEROL SULFATE 3 ML SOLUTION IH SCH ×3 (14:49→22:08)
[2019-01-09 15:44] LABS: ABG BASE EXCESS 0.5 mmol/L (-2.0-3.0); ABG HCO3 25.7 mmol/L (21.0-28.0); ABG OXYGEN SATURATION 99.3 % (95.0-99.0); ABG PCO2 43 mmHg (32-45)
--- NOTE | 2019-01-09 16:00 | NUR ---
PT OPENS EYES TO VERBAL STIMULATION, NO NEURO DEFICIT NOTED. ABLE TO MOVE ALL EXTREMITIES. WEANING FROM VENT INITIATED PER CV PROTOCOL. PT INSTRUCTED IN PROCESS, NODS UNDERSTANDING.
[2019-01-09] MEDS: CEFAZOLIN SODIUM 1 GM VIAL IV SCH (16:29)
[2019-01-09 17:06] LABS: ABG BASE EXCESS 0.7 mmol/L (-2.0-3.0); ABG HCO3 25.9 mmol/L (21.0-28.0); ABG OXYGEN SATURATION 94.9 % (95.0-99.0); ABG PCO2 44 mmHg (32-45)
--- NOTE | 2019-01-09 18:42 | NUR ---
PT AWAKE, TOLERATING WEANING FROM VENT. PT WITH STRONG BILATERAL HAND SENIOR INFORMATION SECURITY CONSULTANT AND ABLE TO SUSTAIN HEAD LIFT. ABG REVIEWED AND WITHIN ORDERED PARAMETERS. PT WITH NIP-20. PT EXTUBATED PER CV PROTOCOL. TOLERATED WELL. PLACED ON AFM 40 %. NO DISTRESS NOTED. CONTINUE TO MONITOR PT.
[2019-01-09 18:52] LABS: POTASSIUM 2.8 mmol/L (3.5-5.1)
--- NOTE | 2019-01-09 18:56 | NUR ---
DR. GARCIA AT BEDSIDE TO SEE PT. PLAN OF CARE DISCUSSED.
[2019-01-09 19:57] LABS: ABG OXYGEN SATURATION 91.4 % (95.0-99.0); ABG PCO2 44 mmHg (32-45)
[2019-01-09] MEDS: TRAMADOL HCL 50 MG TABLET PO PRN (21:22)
[2019-01-09] MEDS: SIMVASTATIN 20 MG TABLET PO SCH (21:22)
[2019-01-09] MEDS: FAMOTIDINE/PF 20 MG/2 ML VIAL IV SCH (21:23)
[2019-01-09 22:06] LABS: ABG BASE EXCESS 2.9 mmol/L (-2.0-3.0); ABG HCO3 28.5 mmol/L (21.0-28.0); ABG OXYGEN SATURATION 91.6 % (95.0-99.0); ABG PCO2 48 mmHg (32-45)
[2019-01-09] MEDS: POTASSIUM CHLORIDE 20MEQ/100ML 100 ML IV PRN (22:20)
[2019-01-10] VITALS (47 sets, daily range): BP systolic 110–184; BP diastolic 39–98
[2019-01-10] MEDS ORDERED: MILRINONE-D5W 20 MG/100 ML 100 ML IV ONE (00:10)
[2019-01-10] MEDS: CEFAZOLIN SODIUM 1 GM VIAL IV SCH ×2 (00:33→08:01)
[2019-01-10] MEDS: IPRATROPIUM/ALBUTEROL SULFATE 3 ML SOLUTION IH SCH ×6 (02:07→21:52)
[2019-01-10] MEDS: TRAMADOL HCL 50 MG TABLET PO PRN ×4 (02:26→17:47)
[2019-01-10 04:08] LABS: ABG BASE EXCESS 2.7 mmol/L (-2.0-3.0); ABG HCO3 27.9 mmol/L (21.0-28.0); ABG OXYGEN SATURATION 89.9 % (95.0-99.0); ABG PCO2 45 mmHg (32-45)
[2019-01-10 04:26] LABS: HEMATOCRIT 31.2 % (36-48); MEAN CORPUSCULAR HEMOGLOBIN 30.8 pg (27.0-33.0); MEAN CORPUSCULAR HGB CONC 33.4 g/dL (32.0-36.0); MEAN CORPUSCULAR VOLUME 92.3 fL (79-99); PLATELET COUNT (AUTO) 121 K/uL (130-400); RED BLOOD CELL COUNT(AUTO) 3.38 MIL/uL (4.00-5.50); RED CELL DISTRIBUTION WIDTH 13.5 % (11.0-15.5); WHITE BLOOD COUNT (AUTO) 9.3 K/uL (4.8-10.8)
[2019-01-10 04:43] LABS: CREATININE 0.8 mg/dL (0.5-1.5); MAGNESIUM 1.8 mg/dL (1.80-2.40); PHOSPHORUS 5.1 mg/dL (2.5-4.9); POTASSIUM 4.2 mmol/L (3.5-5.1)
[2019-01-10 04:45] LABS: INR 1.02 (0.85-1.15); PROTHROMBIN TIME 10.7 SEC (9.6-11.6)
[2019-01-10] MEDS ORDERED: CALCIUM GLUCONATE 1 GM/10 ML VIAL IV ONE (05:33)
[2019-01-10] MEDS: MAGNESIUM 2GM PREMIX 50ML 50 ML IV PRN (05:40)
[2019-01-10] MEDS: LEVOTHYROXINE 100 MCG TABLET PO SCH (05:41)
[2019-01-10] MEDS ORDERED: PHARMACY COMMUNICATION MISC SCH (07:15)
[2019-01-10] MEDS: FAMOTIDINE/PF 20 MG/2 ML VIAL IV SCH ×2 (08:01→20:55)
[2019-01-10] MEDS: FUROSEMIDE 10 MG/ML 2ML VIAL IV SCH ×2 (08:01→20:55)
[2019-01-10] MEDS: Q-PUMP 1 EACH IRRIG SCH (11:01)
[2019-01-10] MEDS: METHYLPREDNISOLONE SOD SUCC 125MG/2ML VIAL IVP SCH ×2 (14:05→20:55)
[2019-01-10] MEDS: BUDESONIDE 0.5 MG/2 ML INH IH SCH (19:40)
[2019-01-10] MEDS: SIMVASTATIN 20 MG TABLET PO SCH (20:56)
[2019-01-11] VITALS (63 sets, daily range): BP systolic 96–185; BP diastolic 34–131
[2019-01-11] MEDS: IPRATROPIUM/ALBUTEROL SULFATE 3 ML SOLUTION IH SCH ×6 (01:54→21:43)
[2019-01-11 03:17] LABS: ABG BASE EXCESS 3.2 mmol/L (-2.0-3.0); ABG HCO3 27.2 mmol/L (21.0-28.0); ABG OXYGEN SATURATION 82.5 % (95.0-99.0); ABG PCO2 40 mmHg (32-45)
--- NOTE | 2019-01-11 03:30 | NUR ---
DESATURATION DR. MARCUS INFORMED OF PT DESATURATION. PT REMAINS AAOX3; C/O INCREASE IN SOB. CURRENTO2 SATS @88%ON 3L NC. ABG AND CXR OBTAINED. PT PLACED ON 100% NRB MASK. ORDER OBTAINED FOR BIPAP PRN. WILL CONT TO MONITOR.
[2019-01-11] MEDS: METHYLPREDNISOLONE SOD SUCC 125MG/2ML VIAL IVP SCH ×3 (03:51→22:31)
[2019-01-11 04:07] LABS: ABG BASE EXCESS 3.6 mmol/L (-2.0-3.0); ABG HCO3 27.8 mmol/L (21.0-28.0); ABG OXYGEN SATURATION 97.1 % (95.0-99.0); ABG PCO2 41 mmHg (32-45)
[2019-01-11 04:28] LABS: HEMATOCRIT 26.3 % (36-48); MEAN CORPUSCULAR HEMOGLOBIN 30.7 pg (27.0-33.0); MEAN CORPUSCULAR HGB CONC 33.6 g/dL (32.0-36.0); MEAN CORPUSCULAR VOLUME 91.6 fL (79-99); PLATELET COUNT (AUTO) 103 K/uL (130-400); RED BLOOD CELL COUNT(AUTO) 2.87 MIL/uL (4.00-5.50); RED CELL DISTRIBUTION WIDTH 13.2 % (11.0-15.5); WHITE BLOOD COUNT (AUTO) 10.6 K/uL (4.8-10.8)
[2019-01-11 04:35] LABS: CREATININE 0.7 mg/dL (0.5-1.5); POTASSIUM 3.8 mmol/L (3.5-5.1)
[2019-01-11 05:03] LABS: PLATELET MORPHOLOGY COMMENT LARGE PLTS PRESENT
[2019-01-11] MEDS: ALBUTEROL SULFATE 0.083% 2.5 MG/3 ML INH IH SCH ×2 (06:00→12:00)
[2019-01-11] MEDS: LEVOTHYROXINE 100 MCG TABLET PO SCH (06:20)
[2019-01-11] MEDS: BUDESONIDE 0.5 MG/2 ML INH IH SCH ×2 (06:24→18:20)
[2019-01-11] MEDS: METOPROLOL TARTRATE 25 MG TAB PO SCH ×2 (08:36→20:44)
[2019-01-11] MEDS: TRAMADOL HCL 50 MG TABLET PO PRN ×2 (10:05→18:26)
[2019-01-11] MEDS: PANTOPRAZOLE SODIUM 40 MG TABLET.DR PO SCH (11:17)
[2019-01-11] MEDS: INSULIN HUMULIN R 100 UNIT/ML 3ML SQ SCH ×3 (11:26→20:45)
[2019-01-11] MEDS: Q-PUMP 1 EACH IRRIG SCH (11:30)
--- NOTE | 2019-01-11 14:00 | NUR ---
DR. MARCUS CALLED AND NOTIFIED OF INCREASED CREPITUS AROUND CHEST AND NECK AND OF CXR RESULTS. NEW ORDERS RECEIVED AND NOTED. PT RESTING IN RECLINER NC 4 L, O2 SAT 97%. DENIES ANY SOB.
--- NOTE | 2019-01-11 14:30 | NUR ---
DR. GENAO AT BEDSIDE TO SEE PT. PLAN OF CARE DISCUSSED.
[2019-01-11] MEDS: FUROSEMIDE 20 MG TABLET PO SCH (16:45)
[2019-01-11] MEDS: SIMVASTATIN 20 MG TABLET PO SCH (20:45)
[2019-01-11] MEDS: NITROGLYCERIN 1GM/1 INCH PACKET TD SCH (20:46)
[2019-01-11] MEDS ORDERED: FUROSEMIDE 10 MG/ML 2ML VIAL IV SCH (21:00)
--- NOTE | 2019-01-11 21:15 | NUR ---
AFIB RVR DR. MARCUS INFORMED PT CONVERTED TO AFIB RVR 150'S. IV DIGOXIN AND AMIODARONE PROTOCOL INITIATED INSTRUCTED. WILL CONTINUE TO MONITOR PT.
[2019-01-11] MEDS ORDERED: AMIODARONE HCL 900MG/18ML IV ONE (21:20)
[2019-01-11] MEDS ORDERED: AMIODARONE HCL 50 MG/ML 3 ML VIAL ONE (21:20)
[2019-01-11] MEDS ORDERED: DIGOXIN 250 MCG/ML 2ML AMP ONE (21:21)
[2019-01-11] MEDS ORDERED: SODIUM CHLORIDE 0.9% 100 ML IV ONE (21:22)
[2019-01-11 22:12] LABS: CREATININE 0.7 mg/dL (0.5-1.5); MAGNESIUM 1.8 mg/dL (1.80-2.40); POTASSIUM 3.7 mmol/L (3.5-5.1)
[2019-01-11] MEDS: MAGNESIUM 2GM PREMIX 50ML 50 ML IV PRN (22:50)
[2019-01-11] MEDS: POTASSIUM CHLORIDE 20 MEQ ERTAB PO PRN (22:51)
[2019-01-12] VITALS (38 sets, daily range): BP systolic 87–172; BP diastolic 32–96
[2019-01-12] MEDS: IPRATROPIUM/ALBUTEROL SULFATE 3 ML SOLUTION IH SCH ×6 (02:00→22:00)
[2019-01-12 04:44] LABS: HEMATOCRIT 27.7 % (36-48); MEAN CORPUSCULAR HEMOGLOBIN 31.4 pg (27.0-33.0); MEAN CORPUSCULAR HGB CONC 34.1 g/dL (32.0-36.0); MEAN CORPUSCULAR VOLUME 92.1 fL (79-99); PLATELET COUNT (AUTO) 100 K/uL (130-400); RED BLOOD CELL COUNT(AUTO) 3.01 MIL/uL (4.00-5.50); RED CELL DISTRIBUTION WIDTH 13.4 % (11.0-15.5); WHITE BLOOD COUNT (AUTO) 9.3 K/uL (4.8-10.8)
[2019-01-12 04:57] LABS: CREATININE 0.7 mg/dL (0.5-1.5); POTASSIUM 4.5 mmol/L (3.5-5.1)
[2019-01-12] MEDS: ALBUTEROL SULFATE 0.083% 2.5 MG/3 ML INH IH SCH ×3 (06:00→23:37)
[2019-01-12] MEDS: LEVOTHYROXINE 100 MCG TABLET PO SCH (06:25)
[2019-01-12] MEDS: METHYLPREDNISOLONE SOD SUCC 125MG/2ML VIAL IVP SCH ×2 (06:25→19:44)
[2019-01-12] MEDS: TRAMADOL HCL 50 MG TABLET PO PRN ×3 (06:25→23:09)
[2019-01-12] MEDS: INSULIN HUMULIN R 100 UNIT/ML 3ML SQ SCH ×3 (06:25→21:08)
[2019-01-12] MEDS: BUDESONIDE 0.5 MG/2 ML INH IH SCH ×2 (06:36→18:38)
[2019-01-12] MEDS: PANTOPRAZOLE SODIUM 40 MG TABLET.DR PO SCH (08:08)
[2019-01-12] MEDS: FUROSEMIDE 20 MG TABLET PO SCH ×2 (08:08→19:44)
[2019-01-12] MEDS: METOPROLOL TARTRATE 25 MG TAB PO SCH ×2 (08:09→21:00)
[2019-01-12] MEDS: ENOXAPARIN SODIUM 30 MG/0.3 ML SQ SCH (08:12)
[2019-01-12] MEDS: Q-PUMP 1 EACH IRRIG SCH (11:45)
[2019-01-12] MEDS: AMIODARONE HCL 200 MG TABLET PO SCH ×2 (12:27→21:01)
--- NOTE | 2019-01-12 14:45 | NUR ---
RDSCREEN - LOS X 7 Pt admitted for AFIB with RVR. Pt S/p Aortic valve replacement. Pt tolerating 75gm CC, Mechanical Soft, Glucerna TID as per Pt . Pt asleep at time of visit. reports good appetite (75% PO intake). Pt LBM 01/06/19, Recommend to add stool softener/laxative for constipation as medically feasible. Pt monitored labs: BUN 20, Glu 199, Ca 8.4, Alb 3.7. RD to continue to monitor. Please notify as nutritional concerns arise. Thank you. Addendum: 01/12/19 at 1452 [address] RD Amended: Links added.
[2019-01-12] MEDS: SIMVASTATIN 20 MG TABLET PO SCH (21:01)
[2019-01-12] MEDS: NITROGLYCERIN 1GM/1 INCH PACKET TD SCH (21:06)
--- NOTE | 2019-01-12 22:45 | NUR ---
CT SCAN PATIENT TRANSPORTED TO CT SCAN VIA BED. TOLERATED ACTIVITY WELL. TRANSPORTED BACK TO ROOM 215. SOME SHORTNESS OF BREATH NOTED WITH ACTIVITY
--- NOTE | 2019-01-12 23:03 | NUR ---
CT CT SCAN RESULTS PROVIDED TO ISH CALLEJAS NP.
[2019-01-13] VITALS (23 sets, daily range): BP systolic 129–165; BP diastolic 57–107
[2019-01-13] MEDS: IPRATROPIUM/ALBUTEROL SULFATE 3 ML SOLUTION IH SCH ×6 (02:00→21:50)
[2019-01-13] MEDS: METHYLPREDNISOLONE SOD SUCC 125MG/2ML VIAL IVP SCH ×3 (02:45→23:46)
[2019-01-13 03:48] LABS: HEMATOCRIT 26.5 % (36-48); MEAN CORPUSCULAR HEMOGLOBIN 30.6 pg (27.0-33.0); MEAN CORPUSCULAR HGB CONC 33.5 g/dL (32.0-36.0); MEAN CORPUSCULAR VOLUME 91.5 fL (79-99); PLATELET COUNT (AUTO) 136 K/uL (130-400); RED CELL DISTRIBUTION WIDTH 13.6 % (11.0-15.5); WHITE BLOOD COUNT (AUTO) 7.8 K/uL (4.8-10.8)
[2019-01-13 04:10] LABS: CREATININE 0.7 mg/dL (0.5-1.5); POTASSIUM 3.8 mmol/L (3.5-5.1)
[2019-01-13] MEDS: TRAMADOL HCL 50 MG TABLET PO PRN (04:46)
[2019-01-13] MEDS: POTASSIUM CHLORIDE 20MEQ/100ML 100 ML IV PRN (05:17)
[2019-01-13] MEDS: LEVOTHYROXINE 100 MCG TABLET PO SCH (06:30)
[2019-01-13] MEDS: INSULIN HUMULIN R 100 UNIT/ML 3ML SQ SCH ×4 (06:31→21:43)
--- NOTE | 2019-01-13 06:43 | NUR ---
STATUS 0629 PATIENT COMPLAINT OF INCREASED SHORTNESS OF BREATH. SPO2 93% INCREASED O2 TO 4 L. 0[facility] NOTIFIED OF INCREASED SHORTNESS OF BREATH AND TACHYPNEIC AND SHALLOW BREATHING. ORDERS TO INCREASE SUCTION TO -40 AND TO NOTIFY CARDIOVASCULAR. 0656 DR ADAIR NOTIFIED OF PATIENT CONDITION AND CT RESULTS.
[2019-01-13] MEDS: ALBUTEROL SULFATE 0.083% 2.5 MG/3 ML INH IH SCH ×2 (06:57→10:57)
[2019-01-13] MEDS: BUDESONIDE 0.5 MG/2 ML INH IH SCH ×2 (06:57→18:28)
--- NOTE | 2019-01-13 10:30 | NUR ---
PROCEDURE PATIENT SCHEDULED FOR CT GD LT CHEST PIGTAIL CATHETER PLACEMENT. CT IMAGES TAKEN AND REVIEWED BY DR Mei DESAI. LT PNEUMOTHORAX HAS DECREASED IN SIZE AND PROCEDURE CANCELLED. DR Mei DESAI SPOKE TO DR Michelle MARCUS REGARDING THE PROCEDURE OUTCOME. PATIENT TRANSPORTED TO [facility] VIA BED AND REPORT GIVEN TO CARLOS VOSS.
[2019-01-13] MEDS: FUROSEMIDE 20 MG TABLET PO SCH ×2 (11:26→16:44)
[2019-01-13] MEDS: AMIODARONE HCL 200 MG TABLET PO SCH ×2 (11:27→21:29)
[2019-01-13] MEDS: METOPROLOL TARTRATE 25 MG TAB PO SCH ×2 (11:27→21:28)
[2019-01-13] MEDS: PANTOPRAZOLE SODIUM 40 MG TABLET.DR PO SCH (11:28)
[2019-01-13] MEDS: ENOXAPARIN SODIUM 30 MG/0.3 ML SQ SCH (11:29)
[2019-01-13] MEDS: Q-PUMP 1 EACH IRRIG SCH (11:45)
[2019-01-13] MEDS ORDERED: TEMAZEPAM 15 MG CAPSULE PO SCH (21:00)
[2019-01-13] MEDS: SIMVASTATIN 20 MG TABLET PO SCH (21:29)
[2019-01-13] MEDS: NITROGLYCERIN 1GM/1 INCH PACKET TD SCH (21:36)
[2019-01-14] VITALS (24 sets, daily range): BP systolic 113–158; BP diastolic 46–86
[2019-01-14] MEDS: IPRATROPIUM/ALBUTEROL SULFATE 3 ML SOLUTION IH SCH ×6 (01:41→23:08)
[2019-01-14 03:51] LABS: BASOPHILS % (AUTO) 0.1 % (0.0-5.0); HEMATOCRIT 28.2 % (36-48); LYMPHOCYTES % (AUTO) 9.6 % (21.0-51.0); MEAN CORPUSCULAR HEMOGLOBIN 30.2 pg (27.0-33.0); MEAN CORPUSCULAR HGB CONC 33.2 g/dL (32.0-36.0); MEAN CORPUSCULAR VOLUME 91.2 fL (79-99); MONOCYTES % (AUTO) 5.3 % (3.0-13.0); PLATELET COUNT (AUTO) 160 K/uL (130-400); RED CELL DISTRIBUTION WIDTH 13.6 % (11.0-15.5); WHITE BLOOD COUNT (AUTO) 6.5 K/uL (4.8-10.8)
[2019-01-14 04:03] LABS: CREATININE 0.7 mg/dL (0.5-1.5); POTASSIUM 3.6 mmol/L (3.5-5.1)
--- NOTE | 2019-01-14 05:00 | NUR ---
FAMILY REQUEST 0415 PATIENT REQUEST TO CALL SIGNIFICANT OTHER . SIGNIFICANT OTHER WAS CALLED PER REQUEST. PATIENT RESTLESS AND STATED THAT NEEDED SOMEONE AT HER BEDSIDE TO HELP HER. PATIENT HAS USED CALL LIGHT ALL NIGHT TO REQUEST NEEDS AND ALL CALLS HAVE BEEN ANSWERED PROMPTLY AND PATIENT ASSISTED BY RN OR PCP. WHEN ASKED WHAT ADDITIONAL HELP SHE NEEDED PATIENT STATED " I JUST WANT SOMEONE HERE". 0500 SIGNIFICANT OTHER ARRIVED TO COMFORT PATIENT.
[2019-01-14] MEDS: POTASSIUM CHLORIDE 20MEQ/100ML 100 ML IV PRN (05:17)
[2019-01-14] MEDS: METHYLPREDNISOLONE SOD SUCC 125MG/2ML VIAL IVP SCH (06:31)
[2019-01-14] MEDS: LEVOTHYROXINE 100 MCG TABLET PO SCH (06:31)
[2019-01-14] MEDS: INSULIN HUMULIN R 100 UNIT/ML 3ML SQ SCH ×4 (06:35→20:59)
[2019-01-14] MEDS: TRAMADOL HCL 50 MG TABLET PO PRN ×2 (06:40→19:31)
[2019-01-14] MEDS: BUDESONIDE 0.5 MG/2 ML INH IH SCH ×2 (07:37→18:35)
[2019-01-14] MEDS: PANTOPRAZOLE SODIUM 40 MG TABLET.DR PO SCH (08:34)
[2019-01-14] MEDS: AMIODARONE HCL 200 MG TABLET PO SCH ×2 (08:34→19:30)
[2019-01-14] MEDS: METOPROLOL TARTRATE 25 MG TAB PO SCH ×2 (08:34→19:30)
[2019-01-14] MEDS: FUROSEMIDE 20 MG TABLET PO SCH ×2 (08:34→16:38)
[2019-01-14] MEDS: ENOXAPARIN SODIUM 30 MG/0.3 ML SQ SCH (08:35)
[2019-01-14] MEDS: SIMVASTATIN 20 MG TABLET PO SCH (19:31)
[2019-01-14] MEDS: NITROGLYCERIN 1GM/1 INCH PACKET TD SCH (19:37)
--- NOTE | 2019-01-14 20:00 | NUR ---
ASSESSMENT AWAKE. ASSISTED TO BED EARLIER. MEDICATED FOR PAIN EARLIER. REMINDED TO USE PILLOW TO SPLINT CHEST WITH DBC TO PREVENT COMPLICATIONS WITH LUNGS. REMINDED TO USE IS Q1H FOR 10 BREATHS WHILE AWAKE TO PREVENT LUNG COMPLICATIONS. ASSESSMENT COMPLETED SEE FLOW SHEET. Addendum: 01/14/19 at 2018 by NOAH CLARK RN RN Amended: Links added.
[2019-01-14] MEDS: TEMAZEPAM 15 MG CAPSULE PO SCH (21:00)
[2019-01-14] MEDS ORDERED: INSULIN GLARGINE 100 UNITS/ML 10 ML VIAL SQ SCH (21:00)
[2019-01-14] MEDS ORDERED: TEMAZEPAM 30 MG CAP ONE (21:50)
[2019-01-15] VITALS (24 sets, daily range): BP systolic 102–161; BP diastolic 47–80
[2019-01-15] MEDS: IPRATROPIUM/ALBUTEROL SULFATE 3 ML SOLUTION IH SCH ×5 (02:17→23:52)
[2019-01-15] MEDS: LEVOTHYROXINE 100 MCG TABLET PO SCH (05:46)
[2019-01-15] MEDS: TRAMADOL HCL 50 MG TABLET PO PRN ×2 (05:47→14:55)
[2019-01-15] MEDS: INSULIN HUMULIN R 100 UNIT/ML 3ML SQ SCH ×4 (06:17→21:17)
[2019-01-15] MEDS: BUDESONIDE 0.5 MG/2 ML INH IH SCH ×2 (07:13→18:44)
[2019-01-15] MEDS: PANTOPRAZOLE SODIUM 40 MG TABLET.DR PO SCH (08:44)
[2019-01-15] MEDS: FUROSEMIDE 20 MG TABLET PO SCH ×2 (08:44→16:17)
[2019-01-15] MEDS: AMIODARONE HCL 200 MG TABLET PO SCH ×2 (08:44→21:07)
[2019-01-15] MEDS: METOPROLOL TARTRATE 25 MG TAB PO SCH ×2 (08:45→21:07)
[2019-01-15] MEDS: ENOXAPARIN SODIUM 30 MG/0.3 ML SQ SCH (08:45)
[2019-01-15] MEDS ORDERED: PREDNISONE 20 MG TABLET PO SCH (09:00)
[2019-01-15] MEDS ORDERED: FUROSEMIDE 10 MG/ML 4ML VIAL IV SCH (09:15)
[2019-01-15] MEDS: Q-PUMP 1 EACH IRRIG SCH (09:32)
--- NOTE | 2019-01-15 20:15 | NUR ---
ASSESSMENT AWAKE. SITTING UP IN CARDIAC CHAIR. FAMILY MEMBER AT BEDSIDE. USES PILLOW TO SPLINT CHEST. ENCOURAGED TO USE IS Q1H FOR 10 BREATHS WHILE AWAKE. ASSESSMENT COMPLETED SEE FLOW SHEET. ENCOURAGED TO CALL FOR WANT OR NEEDS.
[2019-01-15] MEDS ORDERED: INSULIN GLARGINE 100 UNITS/ML 10 ML VIAL SQ SCH (21:00)
[2019-01-15] MEDS ORDERED: TEMAZEPAM 30 MG CAP ONE (21:05)
[2019-01-15] MEDS: SIMVASTATIN 20 MG TABLET PO SCH (21:07)
[2019-01-15] MEDS: TEMAZEPAM 15 MG CAPSULE PO SCH (21:08)
[2019-01-15] MEDS: NITROGLYCERIN 1GM/1 INCH PACKET TD SCH (21:09)
[2019-01-16] VITALS (17 sets, daily range): BP systolic 112–143; BP diastolic 49–86
[2019-01-16 03:59] LABS: HEMATOCRIT 33.1 % (36-48); MEAN CORPUSCULAR HEMOGLOBIN 30.3 pg (27.0-33.0); MEAN CORPUSCULAR HGB CONC 33.2 g/dL (32.0-36.0); MEAN CORPUSCULAR VOLUME 91.2 fL (79-99); PLATELET COUNT (AUTO) 244 K/uL (130-400); RED BLOOD CELL COUNT(AUTO) 3.63 MIL/uL (4.00-5.50); RED CELL DISTRIBUTION WIDTH 13.8 % (11.0-15.5); WHITE BLOOD COUNT (AUTO) 16.1 K/uL (4.8-10.8)
[2019-01-16 04:10] LABS: CREATININE 0.6 mg/dL (0.5-1.5); MAGNESIUM 1.8 mg/dL (1.80-2.40)
[2019-01-16 04:12] LABS: POTASSIUM 2.8 mmol/L (3.5-5.1)
[2019-01-16] MEDS: MAGNESIUM 2GM PREMIX 50ML 50 ML IV PRN (04:22)
[2019-01-16] MEDS: POTASSIUM CHLORIDE 10MEQ/100ML 100 ML IV PRN (04:23)
[2019-01-16] MEDS ORDERED: AMIODARONE HCL 150 MG in DEXTROSE 5%-WATER 100 ML IV SCH (04:30)
[2019-01-16] MEDS ORDERED: AMIODARONE HCL 900 MG in DEXTROSE 5%-WATER 500 ML IV SCH (04:30)
--- NOTE | 2019-01-16 04:30 | NUR ---
MD CALL A FIB RVR 135. LABS BACK AND LOW MG AND K BEING REPLACED. CALL PLACED TO DR MARCUS AND INFORMED OF THIS AND ORDERS RECEIVED AND CARRIED OUT.
[2019-01-16] MEDS ORDERED: AMIODARONE HCL 900MG/18ML IV ONE (04:32)
[2019-01-16] MEDS ORDERED: AMIODARONE HCL 50 MG/ML 3 ML VIAL ONE (04:32)
[2019-01-16] MEDS: POTASSIUM CHLORIDE 20MEQ/100ML 100 ML IV PRN (06:00)
[2019-01-16] MEDS: BUDESONIDE 0.5 MG/2 ML INH IH SCH ×2 (06:50→18:35)
[2019-01-16] MEDS: IPRATROPIUM/ALBUTEROL SULFATE 3 ML SOLUTION IH SCH ×4 (06:50→23:05)
[2019-01-16] MEDS: INSULIN HUMULIN R 100 UNIT/ML 3ML SQ SCH ×4 (07:30→21:05)
[2019-01-16] MEDS: LEVOTHYROXINE 100 MCG TABLET PO SCH (07:32)
--- NOTE | 2019-01-16 08:43 | NUR ---
CICI Boles WITH DR. GARCIA IN TO SEE PATIENT. INFORMED HIM PT WENT INTO A-FIB RVR 130s LAST NIGHT. AMIODARONE PROTOCOL INITIATED. HE SPOKE WITH DR. GARCIA REGARDING AMIODARONE PO. NO CHANGES MADE. WILL CONT TO MONITOR.
[2019-01-16] MEDS: INSULIN GLARGINE 100 UNITS/ML 10 ML VIAL SQ SCH ×3 (09:00→21:04)
[2019-01-16] MEDS: METOPROLOL TARTRATE 25 MG TAB PO SCH ×2 (09:05→20:46)
[2019-01-16] MEDS: FUROSEMIDE 20 MG TABLET PO SCH ×2 (09:05→09:07)
[2019-01-16] MEDS: PANTOPRAZOLE SODIUM 40 MG TABLET.DR PO SCH (09:05)
[2019-01-16] MEDS: POTASSIUM CHLORIDE 20 MEQ ERTAB PO SCH ×3 (09:06→20:44)
[2019-01-16] MEDS: AMIODARONE HCL 200 MG TABLET PO SCH ×2 (09:06→20:45)
[2019-01-16] MEDS: ENOXAPARIN SODIUM 30 MG/0.3 ML SQ SCH (09:06)
--- NOTE | 2019-01-16 09:10 | NUR ---
MD ROUNDS DR. MARCUS IN TO SEE PATIENT. MD SPOKE WITH PATIENT. NEW ORDERS TO BE CARRIED OUT.
[2019-01-16] MEDS: TRAMADOL HCL 50 MG TABLET PO PRN ×2 (10:10→16:09)
--- NOTE | 2019-01-16 12:12 | NUR ---
ROUNDS DR. WILSON IN TO SEE PATIENT. STATES SHE WILL SPEAK TO CASE MANAGEMENT IN REGARDS TO DISCHARGE PLANNING.
--- NOTE | 2019-01-16 12:14 | NUR ---
ROUNDS DR. SAEED IN TO SEE PATIENT. REVIEWED CHEST X-RAY. NEW ORDERS RECEIVED TO BE CARRIED OUT.
--- NOTE | 2019-01-16 13:42 | NUR ---
PT TO BE TRANSFERRED TO ROOM 229, REPORT GIVEN TO FANI GONZALEZ.
--- NOTE | 2019-01-16 14:02 | NUR ---
PT TRANSFERRED TO ROOM 229 ALONG WITH ALL BELONGINGS. FAMILY ACCOMPANIED PATIENT.
--- NOTE | 2019-01-16 18:02 | NUR ---
DC PLAN SPOKE TO DR. WILSON SAID [facility] FOR [facility]. SENT TO [facility] PATIENT NEEDS CHEST TUBE MANAGEMENT. [facility] SIGNED. SPOKE TO PATIENT AND FAMILY. INFO SENT INCLUDING [facility] LIKELY NEED EMS. PROBABLY NOT DISCHARGING UNTIL SATURDAY OR SATURDAY. Addendum: 01/16/19 at 1803 by DENISE GOMEZ RN CM Amended: Links added.
[2019-01-16 20:14] LABS: APPEARANCE,URINE Clear (CLEAR); BILIRUBIN,URINE Negative (NEGATIVE); COLOR,URINE Yellow (YELLOW); GLUCOSE, URINE (UA) Negative (NEGATIVE); KETONES,URINE Negative (NEGATIVE); LEUKOCYTE ESTERASE ,URINE Trace (NEGATIVE); NITRATE,URINE Negative (NEGATIVE); OCCULT BLOOD,URINE Negative (NEGATIVE); PROTEIN,URINE Negative (NEGATIVE); UROBILINOGEN,URINE 0.2 mg/dL (0.2-1.0)
[2019-01-16 20:24] LABS: BACTERIA,URINE None Seen /HPF (None Seen); MUCUS,URINE None Seen LPF (None Seen); RBC,URINE 0-1 /HPF (0-1); SQUAMOUS EPITHELIAL CELL,UR 0-2 /HPF (0-2)
[2019-01-16] MEDS: TEMAZEPAM 15 MG CAPSULE PO SCH (20:45)
[2019-01-16] MEDS: SIMVASTATIN 20 MG TABLET PO SCH (20:45)
[2019-01-16] MEDS: NITROGLYCERIN 1GM/1 INCH PACKET TD SCH (20:46)
[2019-01-17 00:04] VITALS: BP 129/58
[2019-01-17 03:52] LABS: HEMATOCRIT 29.2 % (36-48); MEAN CORPUSCULAR HEMOGLOBIN 30.2 pg (27.0-33.0); MEAN CORPUSCULAR HGB CONC 33.1 g/dL (32.0-36.0); MEAN CORPUSCULAR VOLUME 91.1 fL (79-99); PLATELET COUNT (AUTO) 154 K/uL (130-400); RED CELL DISTRIBUTION WIDTH 13.8 % (11.0-15.5); WHITE BLOOD COUNT (AUTO) 8.5 K/uL (4.8-10.8)
[2019-01-17 04:07] LABS: CREATININE 0.7 mg/dL (0.5-1.5); POTASSIUM 3.6 mmol/L (3.5-5.1)
[2019-01-17 04:22] VITALS: BP 128/66
[2019-01-17] MEDS: BUDESONIDE 0.5 MG/2 ML INH IH SCH ×2 (06:15→19:05)
[2019-01-17] MEDS: IPRATROPIUM/ALBUTEROL SULFATE 3 ML SOLUTION IH SCH ×4 (06:15→23:32)
[2019-01-17] MEDS: LEVOTHYROXINE 100 MCG TABLET PO SCH (06:32)
[2019-01-17] MEDS: INSULIN HUMULIN R 100 UNIT/ML 3ML SQ SCH ×4 (06:33→22:26)
[2019-01-17 07:37] VITALS: BP 122/51
[2019-01-17] MEDS: METOPROLOL TARTRATE 25 MG TAB PO SCH ×2 (09:41→21:27)
[2019-01-17] MEDS: PANTOPRAZOLE SODIUM 40 MG TABLET.DR PO SCH (09:41)
[2019-01-17] MEDS: AMIODARONE HCL 200 MG TABLET PO SCH ×2 (09:41→21:28)
[2019-01-17] MEDS: FUROSEMIDE 20 MG TABLET PO SCH ×2 (09:41→17:40)
[2019-01-17] MEDS: POTASSIUM CHLORIDE 20 MEQ ERTAB PO SCH ×2 (09:42→21:28)
[2019-01-17] MEDS: ENOXAPARIN SODIUM 30 MG/0.3 ML SQ SCH (09:42)
[2019-01-17] MEDS: INSULIN GLARGINE 100 UNITS/ML 10 ML VIAL SQ SCH ×2 (10:04→22:25)
[2019-01-17 11:33] VITALS: BP 112/55
[2019-01-17 11:53] LABS: HEMATOCRIT 30.5 % (36-48); MEAN CORPUSCULAR HEMOGLOBIN 30.2 pg (27.0-33.0); MEAN CORPUSCULAR VOLUME 91.6 fL (79-99); PLATELET COUNT (AUTO) 155 K/uL (130-400); RED BLOOD CELL COUNT(AUTO) 3.33 MIL/uL (4.00-5.50); RED CELL DISTRIBUTION WIDTH 13.7 % (11.0-15.5); WHITE BLOOD COUNT (AUTO) 7.7 K/uL (4.8-10.8)
[2019-01-17 12:03] LABS: CREATININE 0.7 mg/dL (0.5-1.5)
[2019-01-17 12:24] LABS: POTASSIUM 3.8 mmol/L (3.5-5.1)
[2019-01-17] MEDS: TRAMADOL HCL 50 MG TABLET PO PRN ×2 (12:48→23:49)
--- NOTE | 2019-01-17 12:51 | NUR ---
Nutrition f/u: Pt continues on 75gmCCD Mechanical soft, 2gmNa with good PO intake. Pt requesting more diabetic diet friendly food options. Pt advised of Salad options, pt verbalized understanding. Recommendations: Continue current diet therapy. Monitor PO intake and tolerance. consult RD as nutrition concerns arise. Addendum: 01/17/19 at [address] Amended: Links added.
[2019-01-17 15:08] VITALS: BP 122/59
[2019-01-17 20:30] VITALS: BP 127/61
[2019-01-17] MEDS: SIMVASTATIN 20 MG TABLET PO SCH (21:26)
[2019-01-17] MEDS: NITROGLYCERIN 1GM/1 INCH PACKET TD SCH (21:29)
[2019-01-17] MEDS: TEMAZEPAM 15 MG CAPSULE PO SCH (21:31)
[2019-01-18 00:01] VITALS: BP 128/63
[2019-01-18 03:45] LABS: CREATININE 0.7 mg/dL (0.5-1.5); POTASSIUM 3.6 mmol/L (3.5-5.1)
[2019-01-18 04:07] VITALS: BP 126/63
[2019-01-18] MEDS: IPRATROPIUM/ALBUTEROL SULFATE 3 ML SOLUTION IH SCH ×4 (06:04→23:25)
[2019-01-18] MEDS: BUDESONIDE 0.5 MG/2 ML INH IH SCH ×2 (06:04→18:31)
[2019-01-18] MEDS: INSULIN HUMULIN R 100 UNIT/ML 3ML SQ SCH ×4 (06:37→22:42)
[2019-01-18] MEDS: INSULIN GLARGINE 100 UNITS/ML 10 ML VIAL SQ SCH (06:43)
[2019-01-18] MEDS: LEVOTHYROXINE 100 MCG TABLET PO SCH (06:49)
[2019-01-18 07:28] VITALS: BP 116/61
[2019-01-18] MEDS: METOPROLOL TARTRATE 25 MG TAB PO SCH ×2 (08:29→22:35)
[2019-01-18] MEDS: AMIODARONE HCL 200 MG TABLET PO SCH ×2 (08:29→22:31)
[2019-01-18] MEDS: FUROSEMIDE 20 MG TABLET PO SCH ×2 (08:29→16:27)
[2019-01-18] MEDS: PANTOPRAZOLE SODIUM 40 MG TABLET.DR PO SCH (08:29)
[2019-01-18] MEDS: APIXABAN 5 MG TABLET PO SCH ×2 (08:30→22:32)
[2019-01-18] MEDS: POTASSIUM CHLORIDE 20 MEQ ERTAB PO SCH ×2 (08:30→22:32)
[2019-01-18] MEDS: POTASSIUM CHLORIDE 20 MEQ ERTAB PO PRN (08:31)
--- NOTE | 2019-01-18 08:45 | NUR ---
AM ASSESSMENT PT SITTING IN CARDIAC RECLINER, WATCHING TV. SPOUSE @ BEDSIDE. A/O X 3. NO SOB. NO DISTRESS NOTED. DENIES CHEST PAIN OR DISCOMFORT. DENIES PALPITATIONS. DENIES INCISIONAL PAIN. TELE: SR. RT UPPER CHEST DSG DRY & INTACT. NO DRAINAGE NOTED. CHEST TUBE TO H2O SEAL. PATENT & DRAINING. NO AIR LEAK NOTED. DENIES N/V AND/OR DIARRHEA. STERNAL PRECAUTIONS REINFORCED. UP W/ASSISTANCE. INSTRUCTED TO CALL FOR ASSISTANCE. CALL [facility] W/IN REACH.
[2019-01-18 10:42] LABS: HEMATOCRIT 29.1 % (36-48); MEAN CORPUSCULAR HEMOGLOBIN 30.8 pg (27.0-33.0); MEAN CORPUSCULAR HGB CONC 33.4 g/dL (32.0-36.0); MEAN CORPUSCULAR VOLUME 92.4 fL (79-99); NUCLEATED RED BLOOD CELLS 0.1 % (0.0-0.19); PLATELET COUNT (AUTO) 148 K/uL (130-400); RED BLOOD CELL COUNT(AUTO) 3.15 MIL/uL (4.00-5.50); WHITE BLOOD COUNT (AUTO) 6.3 K/uL (4.8-10.8)
[2019-01-18 11:23] VITALS: BP 104/53
--- NOTE | 2019-01-18 13:35 | NUR ---
MD NOTIFICATION CALL RECEIVED FROM DR WILSON. UPDATED ON PT'S CURRENT STATUS & PLAN OF CARE REVIEWED. ORDERS ENTERED BY DR WILSON & REVIEWED.
[2019-01-18] MEDS ORDERED: AMIO200T44 PO (13:52)
[2019-01-18] MEDS ORDERED: FURO20TA6 PO (13:52)
[2019-01-18] MEDS ORDERED: APIX5TAB PO (13:52)
[2019-01-18] MEDS ORDERED: METO25 PO (13:56)
[2019-01-18 15:00] VITALS: BP 123/59
[2019-01-18 20:47] VITALS: BP 131/48
[2019-01-18] MEDS ORDERED: INSULIN GLARGINE 100 UNITS/ML 10 ML VIAL SQ SCH (21:00)
[2019-01-18] MEDS: TEMAZEPAM 15 MG CAPSULE PO SCH (22:31)
[2019-01-18] MEDS: SIMVASTATIN 20 MG TABLET PO SCH (22:33)
[2019-01-18] MEDS: NITROGLYCERIN 1GM/1 INCH PACKET TD SCH (22:59)
[2019-01-19] VITALS (7 sets, daily range): BP systolic 108–134; BP diastolic 53–68
[2019-01-19] MEDS: BUDESONIDE 0.5 MG/2 ML INH IH SCH ×2 (06:09→17:59)
[2019-01-19] MEDS: IPRATROPIUM/ALBUTEROL SULFATE 3 ML SOLUTION IH SCH ×4 (06:09→23:09)
[2019-01-19] MEDS: INSULIN HUMULIN R 100 UNIT/ML 3ML SQ SCH ×4 (06:44→21:00)
[2019-01-19] MEDS: LEVOTHYROXINE 100 MCG TABLET PO SCH (06:49)
[2019-01-19] MEDS ORDERED: INSULIN GLARGINE 100 UNITS/ML 10 ML VIAL SQ ONE (07:00)
--- NOTE | 2019-01-19 07:13 | NUR ---
STATUS CHEST TUBE CLAMPED @ THIS TIME BY BHASKAR GONZALEZ ORDERED BY DR ADAIR.
--- NOTE | 2019-01-19 08:15 | NUR ---
AM ASSESSMENT PT LAYING IN CARDIAC RECLINER, WATCHING TV. SPOUSE @ BEDSIDE. A/O X 3. NO SOB. NO DISTRESS NOTED. DENIES CHEST PAIN OR DISCOMFORT. DENIES PALPITATIONS. DENIES INCISIONAL PAIN. C/O BACK PAIN. PO PAIN MEDICATION TO BE GIVEN. TELE: SR 70s. RT UPPER CHEST DSG DRY & INTACT. NO DRAINAGE NOTED. STERNAL PRECAUTIONS REINFORCED. DENIES N/V AND/OR DIARRHEA. IS 1000 ML. UP W/ASSISTANCE. CALL CARL[facility]TA W/IN REACH.
[2019-01-19] MEDS: PANTOPRAZOLE SODIUM 40 MG TABLET.DR PO SCH (08:53)
[2019-01-19] MEDS: FUROSEMIDE 20 MG TABLET PO SCH ×2 (08:53→16:39)
[2019-01-19] MEDS: AMIODARONE HCL 200 MG TABLET PO SCH ×2 (08:53→21:03)
[2019-01-19] MEDS: TRAMADOL HCL 50 MG TABLET PO PRN ×2 (08:53→21:13)
[2019-01-19] MEDS: APIXABAN 5 MG TABLET PO SCH ×2 (08:53→21:04)
[2019-01-19] MEDS: POTASSIUM CHLORIDE 20 MEQ ERTAB PO SCH ×2 (08:54→21:04)
[2019-01-19] MEDS: METOPROLOL TARTRATE 25 MG TAB PO SCH ×2 (08:56→21:00)
[2019-01-19] MEDS ORDERED: INSULIN GLARGINE 100 UNITS/ML 10 ML VIAL SQ SCH (13:45)
--- NOTE | 2019-01-19 13:45 | NUR ---
MD VISIT DR WILSON IN TO SEE PT. UPDATED ON PT'S STATUS & CURRENT PLAN OF CARE. ORDERS ENTERED BY MD & CARRIED OUT.
[2019-01-19] MEDS ORDERED: INSU3INS3 SQ (13:58)
[2019-01-19] MEDS: SIMVASTATIN 20 MG TABLET PO SCH (21:03)
[2019-01-19] MEDS: NITROGLYCERIN 1GM/1 INCH PACKET TD SCH (21:05)
[2019-01-19] MEDS: TEMAZEPAM 15 MG CAPSULE PO SCH (21:12)
--- NOTE | 2019-01-20 | NUR ---
pt complaint of feeling short of breath o2 2 liter nc administered.
--- NOTE | 2019-01-20 01:00 | NUR ---
pt resting quietly. no distress noted
[2019-01-20 03:09] VITALS: BP 137/66
[2019-01-20] MEDS: LEVOTHYROXINE 100 MCG TABLET PO SCH (06:27)
[2019-01-20] MEDS: INSULIN HUMULIN R 100 UNIT/ML 3ML SQ SCH ×4 (06:29→21:00)
[2019-01-20] MEDS: BUDESONIDE 0.5 MG/2 ML INH IH SCH ×2 (06:42→19:00)
[2019-01-20] MEDS: IPRATROPIUM/ALBUTEROL SULFATE 3 ML SOLUTION IH SCH ×4 (06:42→23:22)
[2019-01-20 07:00] VITALS: BP 115/71
[2019-01-20] MEDS ORDERED: INSULIN GLARGINE 100 UNITS/ML 10 ML VIAL SQ SCH (08:00)
[2019-01-20] MEDS: AMIODARONE HCL 200 MG TABLET PO SCH ×2 (09:28→20:57)
[2019-01-20] MEDS: PANTOPRAZOLE SODIUM 40 MG TABLET.DR PO SCH (09:28)
[2019-01-20] MEDS: POTASSIUM CHLORIDE 20 MEQ ERTAB PO SCH ×2 (09:28→20:58)
[2019-01-20] MEDS: FUROSEMIDE 20 MG TABLET PO SCH ×2 (09:30→17:31)
[2019-01-20] MEDS: METOPROLOL TARTRATE 25 MG TAB PO SCH ×2 (09:31→20:58)
[2019-01-20] MEDS: APIXABAN 5 MG TABLET PO SCH ×2 (11:41→20:58)
[2019-01-20 11:44] VITALS: BP 119/56
--- NOTE | 2019-01-20 13:52 | NUR ---
DC PLAN SPOKE TO DIRECTOR REGARDING DC PLAN. PATIENT DC CHEST TUBES WANTS TO GO HOME. NEW ORDER SAYS POSS DC HOME TOMORROW. LET KELLY KATHLEEN [facility] KNOW OF NEW PLAN. Addendum: 01/20/19 at 1356 by DENISE GOMEZ RN Amended: Links added.
[2019-01-20 15:00] VITALS: BP 118/53
--- NOTE | 2019-01-20 15:23 | NUR ---
DC PLAN DR. WILSON SPOKE TO ME SAID PATIENT GOING HOME. PATIENT HAS ANXIETY ORDERING HOME HEALTH TO PREVENT READMISSION. SPOKE TO PATIENT GOT [facility] FOR [place]. INFO SENT. ALSO PENDING TO SEE IF PATIENT QUALIFIES FOR 02. Addendum: 01/20/19 at 1527 by DENISE GOMEZ RN CM Amended: Links added.
[2019-01-20] MEDS: TRAMADOL HCL 50 MG TABLET PO PRN (17:32)
[2019-01-20 19:41] VITALS: BP 119/62
[2019-01-20] MEDS: TEMAZEPAM 15 MG CAPSULE PO SCH (20:57)
[2019-01-20] MEDS: SIMVASTATIN 20 MG TABLET PO SCH (20:57)
[2019-01-20] MEDS: NITROGLYCERIN 1GM/1 INCH PACKET TD SCH (20:59)
[2019-01-20 23:37] VITALS: BP 123/54
[2019-01-21 03:32] VITALS: BP 111/56
[2019-01-21 04:35] LABS: ABG BASE EXCESS 4.6 mmol/L (-2.0-3.0); ABG HCO3 28.4 mmol/L (21.0-28.0); ABG OXYGEN SATURATION 92.9 % (95.0-99.0); ABG PCO2 39 mmHg (32-45)
[2019-01-21 05:11] LABS: CREATININE 0.8 mg/dL (0.5-1.5); POTASSIUM 4.2 mmol/L (3.5-5.1)
[2019-01-21] MEDS: INSULIN HUMULIN R 100 UNIT/ML 3ML SQ SCH ×2 (06:05→11:30)
[2019-01-21] MEDS: LEVOTHYROXINE 100 MCG TABLET PO SCH (06:08)
[2019-01-21] MEDS: IPRATROPIUM/ALBUTEROL SULFATE 3 ML SOLUTION IH SCH ×2 (06:20→11:01)
[2019-01-21] MEDS: BUDESONIDE 0.5 MG/2 ML INH IH SCH (06:20)
[2019-01-21] MEDS ORDERED: INSULIN GLARGINE 100 UNITS/ML 10 ML VIAL SQ SCH (07:00)
[2019-01-21] MEDS: TRAMADOL HCL 50 MG TABLET PO PRN (07:29)
[2019-01-21 08:31] VITALS: BP 123/58
[2019-01-21] MEDS: APIXABAN 5 MG TABLET PO SCH (08:51)
[2019-01-21] MEDS: FUROSEMIDE 20 MG TABLET PO SCH (08:52)
[2019-01-21] MEDS: PANTOPRAZOLE SODIUM 40 MG TABLET.DR PO SCH (08:52)
[2019-01-21] MEDS: POTASSIUM CHLORIDE 20 MEQ ERTAB PO SCH (08:53)
[2019-01-21] MEDS: METOPROLOL TARTRATE 25 MG TAB PO SCH (08:53)
[2019-01-21] MEDS ORDERED: AMIODARONE HCL 200 MG TABLET PO SCH (09:00)
--- NOTE | 2019-01-21 11:52 | NUR ---
DC PLAN SPOKE TO [facility] THIS MORNING. PATIENT IS ACCEPTED WILL SEE PATIENT TOMORROW. LET NURSE KNOW. DC PLAN HOME TODAY. Addendum: 01/21/19 at 1153 by DENISE GOMEZ RN CM Amended: Links added.
[2019-01-21 12:38] VITALS: BP 105/51
== END 2019-01-21 15:00 | disposition home health service (06) | DRG 216 ==
LOC: EDH 00:53 → EDHIP 03:10 → 2DH 01-07 13:43 → 2CV 01-09 07:22 → 2CH 01-10 06:38 → 2AH 01-16 13:26
PROVIDERS: ADMIT Internal Medicine; ATTEND Internal Medicine
PROC: B3101ZZ Fluoroscopy of Thoracic Aorta using Low Osmolar Contrast (ICD-10-PCS; principal; 2019-01-07)
PROC: B2151ZZ Fluoroscopy of Left Heart using Low Osmolar Contrast (ICD-10-PCS; 2019-01-07)
PROC: B2111ZZ Fluoroscopy of Multiple Coronary Arteries using Low Osmolar Contrast (ICD-10-PCS; 2019-01-07)
PROC: 4A023N8 Measurement of Cardiac Sampling and Pressure, Bilateral, Percutaneous Approach (ICD-10-PCS; 2019-01-07)
PROC: 02RF08Z Replacement of Aortic Valve with Zooplastic Tissue, Open Approach (ICD-10-PCS; 2019-01-09)
PROC: 5A1221Z Performance of Cardiac Output, Continuous (ICD-10-PCS; 2019-01-09)
PROC: B246ZZ4 Ultrasonography of Right and Left Heart, Transesophageal (ICD-10-PCS; 2019-01-09)
DX: I08.3 Combined rheumatic disorders of mitral, aortic and tricuspid valves (principal); I50.43 Acute on chronic combined systolic (congestive) and diastolic (congestive) heart failure; K25.4 Chronic or unspecified gastric ulcer with hemorrhage; I13.0 Hypertensive heart and chronic kidney disease with heart failure and stage 1 through stage 4 chronic kidney disease, or unspecified chronic kidney disease; D62 Acute posthemorrhagic anemia; D68.59 Other primary thrombophilia; J45.901 Unspecified asthma with (acute) exacerbation; J93.9 Pneumothorax, unspecified; T79.7XXA Traumatic subcutaneous emphysema, initial encounter; I48.0 Paroxysmal atrial fibrillation; I27.20 Pulmonary hypertension, unspecified; G43.909 Migraine, unspecified, not intractable, without status migrainosus; E03.9 Hypothyroidism, unspecified; E11.21 Type 2 diabetes mellitus with diabetic nephropathy; E11.22 Type 2 diabetes mellitus with diabetic chronic kidney disease; E11.43 Type 2 diabetes mellitus with diabetic autonomic (poly)neuropathy; E11.49 Type 2 diabetes mellitus with other diabetic neurological complication; E11.51 Type 2 diabetes mellitus with diabetic peripheral angiopathy without gangrene; E66.01 Morbid (severe) obesity due to excess calories; E78.5 Hyperlipidemia, unspecified; E83.42 Hypomagnesemia; E87.6 Hypokalemia; F28 Other psychotic disorder not due to a substance or known physiological condition; G47.00 Insomnia, unspecified; G47.33 Obstructive sleep apnea (adult) (pediatric); I49.3 Ventricular premature depolarization; J44.9 Chronic obstructive pulmonary disease, unspecified; K21.9 Gastro-esophageal reflux disease without esophagitis; K31.84 Gastroparesis; M19.90 Unspecified osteoarthritis, unspecified site; M75.90 Shoulder lesion, unspecified, unspecified shoulder; N18.2 Chronic kidney disease, stage 2 (mild); E78.1 Pure hyperglyceridemia; T38.0X5A Adverse effect of glucocorticoids and synthetic analogues, initial encounter; Z68.32 Body mass index [BMI] 32.0-32.9, adult; Z88.6 Allergy status to analgesic agent; Z79.01 Long term (current) use of anticoagulants; Z79.4 Long term (current) use of insulin; Z79.51 Long term (current) use of inhaled steroids; Z79.890 Hormone replacement therapy; Z79.899 Other long term (current) drug therapy; Z80.0 Family history of malignant neoplasm of digestive organs; Z80.3 Family history of malignant neoplasm of breast; Z80.6 Family history of leukemia; Z80.8 Family history of malignant neoplasm of other organs or systems; Z82.5 Family history of asthma and other chronic lower respiratory diseases; Z83.3 Family history of diabetes mellitus; Z82.49 Family history of ischemic heart disease and other diseases of the circulatory system
CPT/HCPCS: 36415; 71045; 71046; 71250; 76998; 80048; 80053; 81001; 82330; 82435; 82550; 82803; 82947; 82948; 83605; 83735; 83880; 84100; 84132; 84295; 84484; 85018; 85025; 85027; 85347; 85610; 85730; 86850; 86900; 86901; 86922; 88305; 88311; 93005; 93318; 93460; 93567; 93880; 94002; 94010; 94150; 94640; 94664; 94760; 97039; 99156; 99157; A7048; C1760; C1769; C1893; C1894; G0378; J0171; J0282; J0610; J0690; J1160; J1644; J1650; J1815; J1940; J2001; J2150; J2250; J2260; J2270; J2405; J2704; J2720; J2795; J2930; J3010; J3475; J3480; J3490; J7030; J7040; J7060; J7070; P9045; P9047; Q9967

== ENCOUNTER → 2019-06-15 | Outpatient (CLI) | payer OTHER ==
[~2019-06-15] MED LIST changes: +AMIO200T44 PO; +APIX5TAB PO; -DILT180C11 PO; +FURO20TA6 PO; -GLIP1TAB6 PO; +INSU3INS3 SQ; +METO25 PO; -MONT10TA24 PO; +MONT10TA26 PO
== END | disposition home or self-care (01) ==
LOC: RAH 10:21
PROVIDERS: ATTEND Internal Medicine
DX: R60.0 Localized edema (principal)
CPT/HCPCS: 93970

== ENCOUNTER → 2020-03-08 | Outpatient (CLI) | payer OTHER | END | disposition home or self-care (01) | LOC: RAH 08:18 | PROVIDERS: ATTEND Internal Medicine | DX: I70.1 Atherosclerosis of renal artery (principal); I10 Essential (primary) hypertension | CPT/HCPCS: 76770; 93975 ==

== ENCOUNTER → 2020-08-18 | Outpatient (CLI) | payer OTHER ==
[~2020-08-18] MED LIST changes: -MONT10TA26 PO; +MONT10TA32 PO
== END | disposition home or self-care (01) ==
LOC: SHCH 13:11
PROVIDERS: ATTEND Internal Medicine Cardiovascular Disease
DX: I87.2 Venous insufficiency (chronic) (peripheral) (principal); I73.9 Peripheral vascular disease, unspecified; I10 Essential (primary) hypertension; I80.201 Phlebitis and thrombophlebitis of unspecified deep vessels of right lower extremity
CPT/HCPCS: 93306; 93356; 93925; 93970

== ENCOUNTER → 2020-11-28 | Outpatient (CLI) | payer OTHER ==
[~2020-11-28] MED LIST changes: +LIDOCAINE HCL 4% LTA SOL 4 ML VIAL TP ONE
== END | disposition home or self-care (01) ==
LOC: WHH 08:56
PROVIDERS: ATTEND Family Medicine
DX: E11.621 Type 2 diabetes mellitus with foot ulcer (principal); I70.245 Atherosclerosis of native arteries of left leg with ulceration of other part of foot; L97.522 Non-pressure chronic ulcer of other part of left foot with fat layer exposed; I70.235 Atherosclerosis of native arteries of right leg with ulceration of other part of foot; L97.512 Non-pressure chronic ulcer of other part of right foot with fat layer exposed; L89.892 Pressure ulcer of other site, stage 2; L84 Corns and callosities; B35.1 Tinea unguium; E11.40 Type 2 diabetes mellitus with diabetic neuropathy, unspecified; E11.22 Type 2 diabetes mellitus with diabetic chronic kidney disease; I12.9 Hypertensive chronic kidney disease with stage 1 through stage 4 chronic kidney disease, or unspecified chronic kidney disease; N18.31 Chronic kidney disease, stage 3a; E78.00 Pure hypercholesterolemia, unspecified; M19.072 Primary osteoarthritis, left ankle and foot
CPT/HCPCS: 11042; 11045; A4450; A6021; A6197; A6456; L3260

== ENCOUNTER → 2020-12-05 | Outpatient (CLI) | payer OTHER | END | disposition home or self-care (01) | LOC: WHH 08:56 | PROVIDERS: ATTEND Family Medicine | DX: I87.312 Chronic venous hypertension (idiopathic) with ulcer of left lower extremity (principal); L97.222 Non-pressure chronic ulcer of left calf with fat layer exposed; E11.22 Type 2 diabetes mellitus with diabetic chronic kidney disease; I12.9 Hypertensive chronic kidney disease with stage 1 through stage 4 chronic kidney disease, or unspecified chronic kidney disease; N18.30 Chronic kidney disease, stage 3 unspecified; E11.40 Type 2 diabetes mellitus with diabetic neuropathy, unspecified; M19.072 Primary osteoarthritis, left ankle and foot; E78.00 Pure hypercholesterolemia, unspecified; E78.5 Hyperlipidemia, unspecified; E66.9 Obesity, unspecified; M19.90 Unspecified osteoarthritis, unspecified site; J45.909 Unspecified asthma, uncomplicated; I48.91 Unspecified atrial fibrillation; Z68.36 Body mass index [BMI] 36.0-36.9, adult | CPT/HCPCS: 11042; A6021; A6197; A6456 ==

== ENCOUNTER → 2020-12-12 | Outpatient (CLI) | payer OTHER | END | disposition home or self-care (01) | LOC: WHH 08:54 | PROVIDERS: ATTEND Family Medicine | DX: I87.312 Chronic venous hypertension (idiopathic) with ulcer of left lower extremity (principal); L97.222 Non-pressure chronic ulcer of left calf with fat layer exposed; E11.22 Type 2 diabetes mellitus with diabetic chronic kidney disease; I12.9 Hypertensive chronic kidney disease with stage 1 through stage 4 chronic kidney disease, or unspecified chronic kidney disease; N18.30 Chronic kidney disease, stage 3 unspecified; E11.40 Type 2 diabetes mellitus with diabetic neuropathy, unspecified; M19.072 Primary osteoarthritis, left ankle and foot; E78.00 Pure hypercholesterolemia, unspecified; E78.5 Hyperlipidemia, unspecified; E66.9 Obesity, unspecified; M19.90 Unspecified osteoarthritis, unspecified site; J45.909 Unspecified asthma, uncomplicated; I48.91 Unspecified atrial fibrillation; Z68.36 Body mass index [BMI] 36.0-36.9, adult | CPT/HCPCS: 11042; A6021; A6197; A6456 ==

== ENCOUNTER → 2020-12-19 | Outpatient (CLI) | payer OTHER | END | disposition home or self-care (01) | LOC: WHH 08:43 | PROVIDERS: ATTEND Family Medicine | DX: I87.312 Chronic venous hypertension (idiopathic) with ulcer of left lower extremity (principal); L97.222 Non-pressure chronic ulcer of left calf with fat layer exposed; E11.622 Type 2 diabetes mellitus with other skin ulcer; E11.22 Type 2 diabetes mellitus with diabetic chronic kidney disease; I12.9 Hypertensive chronic kidney disease with stage 1 through stage 4 chronic kidney disease, or unspecified chronic kidney disease; N18.30 Chronic kidney disease, stage 3 unspecified; E11.628 Type 2 diabetes mellitus with other skin complications; E11.40 Type 2 diabetes mellitus with diabetic neuropathy, unspecified; I48.91 Unspecified atrial fibrillation; M19.072 Primary osteoarthritis, left ankle and foot; E78.00 Pure hypercholesterolemia, unspecified; E78.5 Hyperlipidemia, unspecified; E66.9 Obesity, unspecified; M19.90 Unspecified osteoarthritis, unspecified site; J45.909 Unspecified asthma, uncomplicated; Z68.36 Body mass index [BMI] 36.0-36.9, adult | CPT/HCPCS: 11042; A6021; A6197; A6456 ==

== ENCOUNTER → 2021-09-25 | Outpatient (CLI) | payer OTHER ==
[~2021-09-25] MED LIST changes: -LIDOCAINE HCL 4% LTA SOL 4 ML VIAL TP ONE; +MONT-39 PO; -MONT10TA32 PO
== END | disposition home or self-care (01) ==
LOC: SHCH 08:20
PROVIDERS: ATTEND Internal Medicine Cardiovascular Disease
DX: I08.0 Rheumatic disorders of both mitral and aortic valves (principal); I11.9 Hypertensive heart disease without heart failure; E66.9 Obesity, unspecified
CPT/HCPCS: 93306